=== PATIENT | male | born 1940 | race Caucasian/White ===

== ENCOUNTER 2018-06-21 06:41 | Inpatient (IN) | payer MEDICARE, OTHER ==
--- NOTE | 2018-06-11 22:38 | HP ---
HISTORY AND PHYSICAL: DATE OF ADMISSION/SURGERY: 06/21/18 PROVIDER: Dr. Angie Hall.* (DICTATED BY TEVIN DOMINIQUE) HISTORY OF PRESENT ILLNESS: Mr. Perez is a 77-year-old gentleman with years of left knee pain. He reports over the last 5 years, he has had pain, but in the last year it has become 6/10 and sharp, aching along his joint line. He has difficulty walking even a block without pain. He has failed conservative management with physical therapy, steroid injections, viscosupplementation injections, and anti- inflammatories without relief. He would like to undergo a left total knee arthroplasty with Dr. Hall. PAST MEDICAL HISTORY: 1. Osteoarthritis. 2. Diabetes. PAST SURGICAL HISTORY: 1. Left knee arthroscopy in February 2018 with . 2. Hernia repair. MEDICATIONS: 1. Tramadol. 2. Metformin 500 mg. 3. Gabapentin mg. 4. Centrum Silver. 5. Pantoprazole 40 mg. ALLERGIES: BEE STING, SHELLFISH-DERIVED PRODUCTS, IV CONTRAST. FAMILY HISTORY: None. SOCIAL HISTORY: The patient lives with his . He is retired. No tobacco, alcohol, or recreational drug use. Normally active and walking. He is right- hand dominant. REVIEW OF SYSTEMS: General: The patient denies fevers, chills, or night sweats. No known anesthesia problems. HEENT: The patient denies headaches, lightheadedness, or syncopal episodes. Cardiothoracic: The patient denies chest pain, heart palpitations, or edema. Pulmonary: The patient denies any shortness of breath with exertion, chronic cough, COPD, or asthma. GI: The patient denies any nausea, vomiting, diarrhea, or constipation. : The patient denies any nocturia, urinary frequency, urgency, or history of UTIs. MSK: The patient denies any chronic or intermittent back pain or fractures. Neuro: The patient denies any paresthesias, numbness, seizures, or stroke. Integument: The patient denies any abrasions, lesions, rashes, lumps, or open sores. PHYSICAL EXAMINATION GENERAL: The patient is alert and oriented x3, in no acute distress. Appropriate mood and affect. Appropriate dress and hygiene. HEENT: Normocephalic, atraumatic. Hearing and vision are grossly intact. PULMONARY: Lungs are clear to auscultation bilaterally with no wheezes, rales, or rhonchi. CARDIO: Regular rate and rhythm. Normal S1 and S2. No appreciable S3 or S4. No murmurs, rubs, or gallops. MUSCULOSKELETAL: Left lower extremity: Inspection of the left knee reveals no erythema or ecchymosis. Skin is warm, dry, and intact. There are no abrasions or open wounds. There is kiim-an-nqquwlid knee effusion. Range of motion is 10 to 120 degrees of flexion with pain. He has no varus or valgus instability. Negative Colleen's. Negative Reyes's. He has 5/5 ankle dorsiflexion and plantar flexion strength. Full sensation intact to light touch with a 2+ dorsalis pedis pulse. IMPRESSION: Left knee osteoarthritis. PLAN: To the OR for a left total knee arthroplasty to be performed by Dr. Angie Hall on 06/21/18. He will follow up 10 to 14 days postoperatively for suture removal and followup. The risks, benefits, and complications of surgery were reviewed with the patient today and he understands them. TEVIN DOMINIQUE [id number]/[facility] #: [id number] MICHAELA
[~2018-06-21 06:41] MED LIST: Acetaminophen TAB* 325 MG PO ONE; Buffered Lidocaine 0.9% SYRIN* 5 ML/SYR SYRINGE INTRADERM ONE; Famotidine IV* 10 MG/ML 2 ML (20 mg) IV ONE; Lactated Ringers 1000 ML Bag* 1,000 ML IV SCH; Tranexamic Acid 1,000 MG in NS 0.9% 50 ML* (outpatient use) IV SCH; celeCOXIB CAP* 200 MG PO ONE
--- OUTSIDE RECORDS SUMMARY | 2018-06-21 06:48 | XMS REPORT | Continuity of Care Document ---
:1940 External Reference #:[id number] Author Name Panchito Woodard M.D. Address [address] [place] [address] Care Team Providers Name Role Phone Panchito Woodard M.D. Care Team Information Stock Tracer Unavailable Payers Type Date Identification Numbers Payment Provider Subscriber Effective: 2007 Policy Number: [id number] Medicare - NGS Tristan Perez Group Name: Medicare [address] PayID: [id number] [facility] [place] [address] Policy Number: [id number] [employer] Tristan Perez PayID: [id number] [address] [address] [place] [address] Advance Directives Description No Information Available Problems Date Description Provider Status Onset: 04/24/2017 Knee pain Panchito Woodard M.D. Active Onset: 04/24/2017 Knee pain Panchito Woodard M.D. Active Onset: 04/24/2017 Hypothyroidism Panchito Woodard M.D. Active Onset: 04/24/2017 Type 2 diabetes mellitus Panchito Woodard M.D. Active Onset: 04/24/2017 Gastroesophageal reflux disease Panchito Woodard M.D. Active Onset: 04/24/2017 Migraine with typical aura Panchito Woodard M.D. Active Onset: 04/24/2017 Neck pain Panchito Woodard M.D. Active Onset: 04/24/2017 Major depressive disorder, single Panchito Woodard M.D. 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 Use Occasionally consumes alcohol Tobacco Use Start: Unknown End: Patient is a former smoker Unknown Recreational Drug Use Never Used Drugs Smoking Status Reviewed: 06/09/18 Patient is a former smoker Tattoo/Piercing Tattoo right Allergies, Adverse Reactions, Alerts Date Description Reaction Status Severity Comments 09/17/2015 Bee Sting Active Severe 09/17/2015 IV dye Active Medications Medication Date Status Form Strength Qnty SIG Indications Ordering Provider Gabapentin 04/27 Active Capsules 300mg 90cap 1 by mouth s three times a Castellan day Fanny grande Metformin HCL 04/27 Active Tablets 1000mg 60tab 1 by mouth E11.9 s twice a day Castellaadiel grande M.D. Polyethylene 04/27 Active Powder 3350NF 255gm 1 scoop m w K59.00 Panchito Glycol 335 and f Castellaadiel grande M.D. Tramadol HCL 03/16 Active Tablets 50mg 120ta 1 by mouth S83.201S bs with a 500 mg Castellan acetaminophen Fanny grande four times a day if needed Naproxen 08/13 Active Tablets 500mg 60tab 1 by mouth M54.41 s twice a day Abdirahman grande M.D. Relion Blood 02/18 Active Strips 100un use 3 times E11. its daily E11.9 Abdirahman Teststrips Fanny grande Centrum Silver 09/17 Active Tablets Adult 50 1 po qd Panchito Adult 50+ /2015 Abdirahman grande M.D. Omeprazole 09/17 Active Tablets 20mg 90tab [address] lua every day Abdirahman grande M.D. Carafate Active Tablets 1gm 1 by mouth Syam, /0000 four times a [place], day Fanny Gabapentin 08/13 Hx Capsules 100mg 90cap 1 by mouth M54.41 s three times a Castellan - day Fanny grande 04/27 Metformin HCL 07/09 Hx Tablets 500mg 180ta 1 by mouth E11.9 bs twice a day Castellan - Fanny grande 04/27 Diclofenac 04/21 Hx Gel 3% 100gm use twice a day for the Castellan - casey grande M.D. 04/21 Diclofenac 04/21 Hx Gel 1% 100gm use four times Panchito a day Abdirahman grande M.D. 07/09 Azithromycin 08/26 Hx Tablets 250mg 6tabs 2 now and 1 J06.9 daily x 4 days Martinellaadiel grande M.D. 04/21 Depakote 07/15 Hx Tablets 500mg 30tab one daily R45.4 DR chanell grande M.D. 07/15 Valproic Acid 07/15 Hx Capsules 250mg 60cap 1 twice a day s ( stop the Castellan - depakote due Fanny grande 04/21 to cost ) Cialis 04/04 Hx Tablets 20mg 3tabs 1 as needed Abdirahman grande M.D. 07/15 Levothyroxine 04/02 Hx Tablets 25mcg 90tab 1 daily in am E03.9 s 1/2 hr before Castellan - meal or meds Fanny grande 08/13 Shingles 04/02 Hx ok to give at Z00.01 pharmacy Abdirahman grande M.D. 07/15 Citalopram 02/18 Hx Tablets 10mg 30tab 1 by mouth F32.9 Hydrobromide s every day Abdirahman grande M.D. 07/15 Melatonin 09/17 Hx Tablets 5mg 2 po @ hs Panchito Martinellaadiel Strength Mis grande M.D. 04/21 Advil Migraine 09/17 Hx Capsules 200mg 1 po qd Abdirahman grande M.D. 08/13 Topiramate 09/17 Hx Tablets 25mg 90tab one tablet at s bedtime Abdirahman grande M.D. 12/09 Hydrocodone-Chris 00 Hx Tablets 5-325mg Saad, taminophen /0000 Mis Brenner MD 08/13 Immunizations CPT Code Status Date Vaccine Lot # [id number] Given 04/21/2018 Flu High Dose Vaccine [id number] Given 04/21/2017 Prevnar 13 33530 Given 04/20/2017 Flu High Dose Vaccine [id number] Given 04/02/2016 Tdap Vaccine over 7 yrs old Tdap [id number] 22867 Given 04/02/2016 Prevnar 13 Prevnar 13 [id number] 09664 Given 09/19/2014 Influenza Vac,Quad,Split=>3 Yrs 06790 Given 06/08/2000 Influenza Vac,Quad,Split=>3 Yrs Vital Signs Date Vital Result Comment 06/09/2018 2:12pm Weight 156.00 lb BP Systolic 114 mmHg BP Diastolic 70 mmHg Height 66.5 inches 5'6.50" Heart Rate 68 /min O2 % BldC Oximetry 96 % Respiratory Rate 18 /min BMI (Body Mass Index) 24.8 kg/m2 04/27/2018 2:27pm Weight 157.00 lb BP Systolic 130 mmHg BP Diastolic 84 mmHg Height 66.75 inches 5'6.75" Heart Rate 64 /min Respiratory Rate 16 /min BMI (Body Mass Index) 24.8 kg/m2 03/16/2018 3:02pm Weight 159.00 lb BP Systolic 122 mmHg BP Diastolic 74 mmHg 12/09/2017 1:15pm Weight 164.00 lb BP Systolic 120 mmHg BP Diastolic 64 mmHg Heart Rate 56 /min Respiratory Rate 16 /min 08/13/2017 8:16am Weight 164.00 lb BP Systolic 130 mmHg BP Diastolic 70 mmHg 07/09/2017 12:59pm Weight 162.50 lb BP Systolic 102 mmHg BP Diastolic 72 mmHg Height 66.50 inches 5'6.50" Heart Rate 72 /min Body Temperature 98.3 F Respiratory Rate 16 /min BMI (Body Mass Index) 25.8 kg/m2 06/15/2017 2:34pm Weight 165.00 lb BP Systolic 128 mmHg BP Diastolic 80 mmHg 04/21/2017 1:48pm Weight 165.50 lb BP Systolic 112 mmHg BP Diastolic 70 mmHg Height 66.50 inches 5'6.50" Heart Rate 56 /min Respiratory Rate 16 /min BMI (Body Mass Index) 26.3 kg/m2 04/06/2017 10:03am Weight 170.50 lb BP Systolic 124 mmHg BP Diastolic 82 mmHg 08/14/2016 1:16pm Weight 169.00 lb BP Systolic 138 mmHg BP Diastolic 82 mmHg 07/15/2016 1:49pm Weight 164.00 lb BP Systolic 138 mmHg BP Diastolic 84 mmHg 04/02/2016 1:04pm Weight 164.50 lb BP Systolic 110 mmHg BP Diastolic 78 mmHg Height 66.75 inches 5'6.75" Heart Rate 60 /min Body Temperature 97.7 F Respiratory Rate 16 /min BMI (Body Mass Index) 26.0 kg/m2 02/19/2016 2:28pm Weight 165.00 lb BP Systolic 120 mmHg BP Diastolic 72 mmHg 01/01/2016 1:11pm Weight 163.00 lb BP Systolic 142 mmHg BP Diastolic 62 mmHg 10/03/2015 1:58pm Weight 170.00 lb BP Systolic 130 mmHg BP Diastolic 78 mmHg 09/17/2015 1:06pm Weight 168.00 lb BP Systolic 130 mmHg BP Diastolic 80 mmHg Height 67 inches 5'7" BMI (Body Mass Index) 26.3 kg/m2 Results Test Date Facility Test Result H/L Range Note LDL Cholesterol 04/21/2018 [facility] Cholesterol 201 mg/dL High < 200 1, 2 Profile [phone] Triglycerides 140 mg/dL <150 3 HDL Cholesterol 48 mg/dL >40 4 LDL-Cholesterol 125 mg/dL < 100 5 Laboratory test finding 04/21/2018 [facility] Amylase 94 U/L 25- 115 [phone] Lipase 191 U/L 56-289 Comprehensive Metabolic 04/21/2018 [facility] Glucose 123 mg/dL High 74-106 Panel [phone] BUN 12 mg/dL 7-18 Creatinine 0.8 mg/dL 0.6-1.3 Glom Filtration Rate, Estimate >60 mL/min >60 If >60 mL/min >60 6 BUN/Creat 15.0 ratio Sodium 143 mmol/L 136-145 Potassium 3.9 mmol/L 3.5-5.1 Chloride 106 mmol/L 98-107 Carbon Dioxide 31 mmol/L 21-32 Anion Gap 6 mEq/L Low 8-16 Calcium 8.9 mg/dL 8.5-10.1 Laboratory test 04/21/2018 [facility] Microalbumin,Random 29.2 < 20.0 finding [phone] Urine mg/L Glycohemoglobin 04/21/2018 [facility] Glycohemoglobin (A1c) 7.1 % High 4.2-6. 7 A1c [phone] 3 eAG 157 mg/dL Liver Function Tests 04/21/2018 [facility] Total Protein 7.3 g/dL 6.4-8.2 [phone] Albumin 3.5 g/dL 3.4-5.0 Globulin 3.8 g/dL 1.9-4.3 Alb/Glob 0.9 ratio Bilirubin,Total 0.6 mg/dL 0.2-1.0 Bilirubin,Direct 0.1 mg/dL 0.0-0.2 Bilirubin,Indirect 0.5 mg/dL 0.0-0.9 Sgot/Ast 20 U/L 15-37 SGPT/Alt 32 U/L 12-78 Alkaline Phosphatase 82 U/L 45-117 CBC 04/21/2018 [facility] White Blood Count 7.8 K/uL 3.4-10.5 [phone] Red Blood Count 5.12 M/uL 4.20-5.80 Hemoglobin 14.2 gm/dL 12.8-17.0 Hematocrit 43.4 % 38.0-48.0 Mean Cell Volume 84.8 fl 80.0-96.0 Mean Corpuscular HGB 27.7 pg 27.0-33.0 Mean Corpuscular HGB Conc 32.7 g/dL 31.7-36.0 Platelet Count 263 K/uL 155-360 Red Cell Distri Width %CV 13.7 % 11.6-15.8 Mean Platelet Volume 10.1 fL 6.6-10.6 Laboratory test 01/11/2018 [facility] TSH Reflex FT4 <pending> 8 finding [phone] And/Or FT3 Glycohemoglobin A1c <pending> Microalbumin,Random 01/11/2018 [facility] Microalbumin,Urine 15.5 < 20.0 Urine [phone] mg/L Comprehensive 01/11/2018 [facility] Glucose 111 High 74-106 Metabolic Panel [phone] mg/dL BUN 19 mg/dL High 7-18 Creatinine 0.8 mg/dL 0.6-1.3 Glom Filtration Rate, Estimate >60 mL/min >60 If >60 mL/min >60 9 BUN/Creat 23.7 ratio Sodium 141 mmol/L 136-145 Potassium 4.1 mmol/L 3.5-5.1 Chloride 103 mmol/L 98-107 Carbon Dioxide 29 mmol/L 21-32 Anion Gap 9 mEq/L 8-16 Calcium 9.2 mg/dL 8.5-10.1 Total Protein 7.5 g/dL 6.4-8.2 Albumin 3.8 g/dL 3.4-5.0 Globulin 3.7 g/dL 1.9-4.3 Alb/Glob 1.0 ratio Bilirubin,Total 0.4 mg/dL 0.2-1.0 Sgot/Ast 17 U/L 15-37 SGPT/Alt 25 U/L 12-78 Alkaline Phosphatase 98 U/L 45-117 Glycohemoglobin 01/11/2018 [facility] Glycohemoglobin 6.8 % High 4.2-6.3 10 A1c [phone] (A1c) eAG 148 mg/dL Laboratory 01/11/2018 [facility] Glycohemoglobin A1c <pending> test finding [phone] Hemoglobin A1c 07/31/2017 [facility] Glycohemoglobin 6.9 % High 4.2 11, [phone] (A1c) -6. 12 3 eAG 151 mg/dL Comprehensive Metabolic 07/31/2017 [facility] Glucose 140 mg/dL High 74-106 Panel [phone] BUN 17 mg/dL 7-18 Creatinine 0.9 mg/dL 0.6-1.3 Glom Filtration Rate, Estimate >60 mL/min >60 If >60 mL/min >60 13 BUN/Creat 18.8 ratio Sodium 141 mmol/L 136-145 Potassium 3.8 mmol/L 3.5-5.1 Chloride 109 mmol/L High 98-107 Carbon Dioxide 27 mmol/L 21-32 Anion Gap 5 mEq/L Low 8-16 Calcium 9.2 mg/dL 8.5-10.1 Total Protein 7.5 g/dL 6.4-8.2 Albumin 3.7 g/dL 3.4-5.0 Globulin 3.8 g/dL 1.9-4.3 Alb/Glob 1.0 ratio Bilirubin,Total 0.5 mg/dL 0.2-1.0 Sgot/Ast 13 U/L Low 15-37 14 SGPT/Alt 26 U/L 12-78 Alkaline Phosphatase 99 U/L 45-117 Prostate Specific 06/13/2017 [facility] PSA ([place] 4.12 ng/mL < 4.0 15, 16 Antigen [phone] Loci) Reflex add FT3? Y Reflex add FT4? Y TSH Reflex FT4 06/13/2017 [facility] Thyroid Stim 4.16 uIU/mL 0.30 -4.20 And/Or FT3 [phone] Hormone Reflex add FT3? Y Reflex add FT4? Y Comprehensive Metabolic 06/13/2017 [facility] Glucose 130 mg/dL High 74-106 Panel [phone] BUN 18 mg/dL 7-18 Creatinine 0.8 mg/dL 0.6-1.3 Glom Filtration Rate, Estimate >60 mL/min >60 If >60 mL/min >60 17 BUN/Creat 22.5 ratio Sodium 141 mmol/L 136-145 Potassium 3.9 mmol/L 3.5-5.1 Chloride 109 mmol/L High 98-107 Carbon Dioxide 24 mmol/L 21-32 Anion Gap 8 mEq/L 8-16 Calcium 9.0 mg/dL 8.5-10.1 Total Protein 7.3 g/dL 6.4-8.2 Albumin 3.6 g/dL 3.4-5.0 Globulin 3.7 g/dL 1.9-4.3 Alb/Glob 1.0 ratio Bilirubin,Total 0.4 mg/dL 0.2-1.0 Sgot/Ast 16 U/L 15-37 SGPT/Alt 28 U/L 12-78 Alkaline Phosphatase 105 U/L 45-117 Reflex add FT3? Y Reflex add FT4? Y Lyme AB/Western 06/13/2017 [facility] Lyme Total < 0.91 ISR 0.00- 0.90 18 Blot Reflex [phone] AB/Reflex To WB Lyme Disease Antibody,QT,Igm < 0.80 index 0.00-0.79 19 Laboratory test 06/13/2017 [facility] Anti-Nuclear Negative Negative 20 finding [phone] Antibodies AU/mL Direct Glycohemoglobin 06/13/2017 [facility] Glycohemoglobin 6.8 % High 4.2-6.3 21 A1c [phone] (A1c) eAG 148 mg/dL LDL Cholesterol 06/13/2017 [facility] Cholesterol 201 mg/dL High < 200 22 Profile [phone] Triglycerides 321 mg/dL High <150 23 HDL Cholesterol 41 mg/dL >40 24 LDL-Cholesterol 96 mg/dL < 100 25 Reflex add FT3? Y Reflex add FT4? Y Microalbumin,Random 06/13/2017 [facility] Microalbumin,Urine 17.1 < 20.0 Urine [phone] mg/L Laboratory test 06/13/2017 [facility] Uric Acid 3.7 3.5-7. finding [phone] mg/dL 2 Rheumatoid Factor Screen < 10.0 IU/mL 0.0-15.0 C-Reactive Protein,Quant < 2.9 mg/L <3.0 Lupus Anticoagulant Reflex 06/13/2017 [facility] PTT-LA 35.8 sec 0.0-51.9 [phone] DRVVT 37.1 sec 0.0-47.0 Note: Comment: . 26 Laboratory test 06/13/2017 [facility] Sedimentation Rate 9 mm/hr 0 -20 27 finding [phone] CBC 06/13/2017 [facility] White Blood Count 7.3 K/uL 3.4-10.5 [phone] Red Blood Count 4.99 M/uL 4.20-5.80 Hemoglobin 14.1 gm/dL 12.8-17.0 Hematocrit 41.7 % 38.0-48.0 Mean Cell Volume 83.6 fl 80.0-96.0 Mean Corpuscular HGB 28.3 pg 27.0-33.0 Mean Corpuscular HGB Conc 33.8 g/dL 31.7-36.0 Platelet Count 274 K/uL 150-400 Red Cell Distri Width %CV 13.3 % 11.6-15.8 Mean Platelet Volume 9.7 fL 6.6-10.6 Microalbumin,Random 03/28/2016 [facility] Microalbumin,Urine 6.9 < 20.0 28 Urine [phone] mg/L @[facility] Pat Id: [id number] @[facility] Req #: [id number] Vitamin 03/27/2016 [facility] Vitamin 38.6 30.0-100.0 29, 30 D,25-Hydroxy [phone] D,25-Hydroxy ng/mL @[facility] Pat Id: [id number] @[facility] Req #: [id number] Thyroid Stim 03/27/2016 [facility] Thyroid Stim 4.52 uIU/mL High 0.30-4.20 Hormone [phone] Hormone @[facility] Pat Id: [phone] @[facility] Req #: [id number] Hemoglobin A1c 03/27/2016 [facility] Glycohemoglobin 6.4 % High 4.2 -6.3 31 [phone] (A1c) eAG 137 mg/dL @[facility] Pat Id: [id number] @[facility] Req #: [id number] LDL Cholesterol Profile 09/19/2015 [facility] Cholesterol 193 mg/dL <200 32 [phone] Triglycerides 276 mg/dL High <150 33 HDL Cholesterol 34 mg/dL Low >40 34 LDL-Cholesterol 104 mg/dL < 100 35 Liver Function Tests 09/19/2015 [facility] Total Protein 7.0 g/dL 6.4-8.2 [phone] Albumin 3.5 g/dL 3.4-5.0 Globulin 3.5 g/dL 1.9-4.3 Alb/Glob 1.0 ratio Bilirubin,Total 0.5 mg/dL 0.2-1.0 Bilirubin,Direct < 0.1 mg/dL 0.0-0.2 Bilirubin,Indirect 0.4 mg/dL 0.0-0.9 Sgot/Ast 16 U/L 15-37 SGPT/Alt 30 U/L 12-78 Alkaline Phosphatase 117 U/L 45-117 Glycohemoglobin 09/19/2015 [facility] Glycohemoglobin 6.7 % High 4.2-6.3 36 A1c [phone] (A1c) eAG 146 mg/dL Basic Metabolic Panel 09/19/2015 [facility] Glucose 120 mg/dL High 74-106 [phone] BUN 18 mg/dL 7-18 Creatinine 0.9 mg/dL 0.6-1.3 Glom Filtration Rate, Estimate >60 mL/min >60 If >60 mL/min >60 37 BUN/Creat 20.0 ratio Sodium 139 mmol/L 136-145 Potassium 3.8 mmol/L 3.5-5.1 Chloride 108 mmol/L High 98-107 Carbon Dioxide 25 mmol/L 21-32 Anion Gap 6 mEq/L Low 8-16 Calcium 8.4 mg/dL Low 8.5-10.1 CBS W/Automated Diff 09/19/2015 [facility] White Blood 6.8 K/uL 3.4-10.5 [phone] Count Red Blood Count 5.08 M/uL 4.20-5.80 Hemoglobin 14.0 gm/dL 12.8-17.0 Hematocrit 42.0 % 38.0-48.0 Mean Cell Volume 82.7 fl 80.0-96.0 Mean Corpuscular HGB 27.6 pg 27.0-33.0 Mean Corpuscular HGB Conc 33.3 g/dL 31.7-36.0 Platelet Count 262 K/uL 150-400 Red Cell Distri Width SD 39.2 fl 36-51 Red Cell Distri Width %CV 13.3 % 11.6-15.8 Mean Platelet Volume 10.2 fL 6.6-10.6 Neut% 51.2 % 33.0-73.0 Lymph % 34.4 % 17.0-56.0 [place] % 10.4 % High 0.0-10.0 Eo% 3.3 % 0.0-5.0 Bas% 0.7 % 0.1-1.0 Neut# 3.46 K/uL 1.8-7.0 Lymph # 2.32 K/uL 1.8-7.0 [place] # 0.70 K/uL 0.0-0.8 Eos # 0.22 K/uL 0.0-0.5 Baso # 0.05 K/uL Low 0.1-0.2 1 E11.40, EPIGAS. PAIN 2 Reference Guidelines*: Desirable: ........... < 200 mg/dL Borderline High: ..... 200-239 mg/dL High: ................ >=240 mg/dL * The National Cholesterol Education Program (NCEP) 3 Reference Guidelines*: Normal: ............. < 150 mg/dL Borderline High: .... 150-199 mg/dL High: ............... 200-499 mg/dL Very High: .......... > 500 mg/dL * Source: National Cholesterol Education Program (NCEP) 4 Reference Guidelines*: Low HDL: ..... < 40 mg/dL Normal: ..... 40-60 mg/dL Desirable: ... > 60 mg/dL *The National Cholesterol Education Program(NCEP) 5 Reference Guidelines*: Optimal:........... <100 mg/dL Near Optimal....... 100-129 mg/dL Borderline High.... 130-159 mg/dL High............... 160-189 mg/dL Very High.......... >=190 mg/dL * Source: National Cholesterol Education Program (NCEP) 6 Note: Persistent reduction for 3 months or more in an eGFR <60 mL/min/1.73 m2 defines CKD. Patients with eGFR values >/=60 mL/min/1.73 m2 may also have CKD if evidence of persistent proteinuria is present. The original MDRD equation for estimated GFR is not valid for patients less than 18 years of age. Additional information may be found at www.kdoqi.org. 7 Elevated levels of HbA1c suggest the need for more aggressive treatment of glycemia. The [place] [employer] recommends that a primary goal of therapy should be a HbA1c of <7% and that physicians should re-evaluate the treatment regimen in patients with HbA1c values consistently >8%. 8 E11.40 9 Note: Persistent reduction for 3 months or more in an eGFR <60 mL/min/1.73 m2 defines CKD. Patients with eGFR values >/=60 mL/min/1.73 m2 may also have CKD if evidence of persistent proteinuria is present. The original MDRD equation for estimated GFR is not valid for patients less than 18 years of age. Additional information may be found at www.kdoqi.org. 10 Elevated levels of HbA1c suggest the need for more aggressive treatment of glycemia. The [place] [employer] recommends that a primary goal of therapy should be a HbA1c of <7% and that physicians should re-evaluate the treatment regimen in patients with HbA1c values consistently >8%. 11 ABD PAIN R10.9 E11.9 K42.9 12 Elevated levels of HbA1c suggest the need for more aggressive treatment of glycemia. The [place] [employer] recommends that a primary goal of therapy should be a HbA1c of <7% and that physicians should re-evaluate the treatment regimen in patients with HbA1c values consistently >8%. 13 Note: Persistent reduction for 3 months or more in an eGFR <60 mL/min/1.73 m2 defines CKD. Patients with eGFR values >/=60 mL/min/1.73 m2 may also have CKD if evidence of persistent proteinuria is present. The original MDRD equation for estimated GFR is not valid for patients less than 18 years of age. Additional information may be found at www.kdoqi.org. 14 Values below the stated reference ranges of AST and ALT can be seen in normal populations. Clinical correlation is suggested. 15 Z12.5 E03.9 E11.9 M17.0 16 THIS ASSAY IS NOT INTENDED A CANCER SCREENING TEST The concentration of PSA in a given specimen, determined with assays from different manufacturers, can vary due to differences in assay methods and reagent specificity. Values obtained from different assay methods cannot be used interchangeably. Method: [employer] [place] Chemiluminescent immunoassay. 17 Note: Persistent reduction for 3 months or more in an eGFR <60 mL/min/1.73 m2 defines CKD. Patients with eGFR values >/=60 mL/min/1.73 m2 may also have CKD if evidence of persistent proteinuria is present. The original MDRD equation for estimated GFR is not valid for patients less than 18 years of age. Additional information may be found at www.kdoqi.org. 18 Negative <0.91 Equivocal 0.91 - 1.09 Positive >1.09 19 Negative <0.80 Equivocal 0.80 - 1.19 Positive >1.19 IgM levels may peak at 3-6 weeks post infection, then gradually decline. 20 Performed at: - [facility] [id number] Vending Attendant: Renaldo Chin MD, Phone: [phone] Performed at: - [facility] [address] [id number] Vending Attendant: Giselle Perez MD, Phone: [phone] 21 Elevated levels of HbA1c suggest the need for more aggressive treatment of glycemia. The [place] [employer] recommends that a primary goal of therapy should be a HbA1c of <7% and that physicians should re-evaluate the treatment regimen in patients with HbA1c values consistently >8%. 22 Reference Guidelines*: Desirable: ........... < 200 mg/dL Borderline High: ..... 200-239 mg/dL High: ................ >=240 mg/dL * The National Cholesterol Education Program (NCEP) 23 Reference Guidelines*: Normal: ............. < 150 mg/dL Borderline High: .... 150-199 mg/dL High: ............... 200-499 mg/dL Very High: .......... > 500 mg/dL * Source: National Cholesterol Education Program (NCEP) 24 Reference Guidelines*: Low HDL: ..... < 40 mg/dL Normal: ..... 40-60 mg/dL Desirable: ... > 60 mg/dL *The National Cholesterol Education Program(NCEP) 25 Reference Guidelines*: Optimal:........... <100 mg/dL Near Optimal....... 100-129 mg/dL Borderline High.... 130-159 mg/dL High............... 160-189 mg/dL Very High.......... >=190 mg/dL * Source: National Cholesterol Education Program (NCEP) 26 No lupus anticoagulant was detected. 27 Method: Sediplast Modified Westergren 28 E11.9 29 E11.9,F32.9 30 Vitamin D deficiency has been defined by the [place] of [employer] and an Endocrine Society practice guideline as a level of serum 25-OH vitamin D less than 20 ng/mL (1,2). The Endocrine Society went on to further define vitamin D insufficiency as a level between 21 and 29 ng/mL (2). 1. IOM ([place] of [employer]). 2010. Dietary reference intakes for calcium and D. [place]: The National Academies Press. 2. Dara MF, Kash PRIDE, Terrence SOW, et al. Evaluation, treatment, and prevention of vitamin D deficiency: an Endocrine Society clinical practice guideline. JCEM. 2010; 96(7):1911-30. Performed at: RN - [facility] [address] [id number] Vending Attendant: Giselle Perez MD, Phone: [phone] 31 Elevated levels of HbA1c suggest the need for more aggressive treatment of glycemia. The [place] Diabetes Association recommends that a primary goal of therapy should be a HbA1c of <7% and that physicians should re-evaluate the treatment regimen in patients with HbA1c values consistently >8%. 32 Reference Guidelines*: Desirable: ........... < 200 mg/dL Borderline High: ..... 200-239 mg/dL High: ................ >=240 mg/dL * The National Cholesterol Education Program (NCEP) 33 Reference Guidelines*: Normal: ............. < 150 mg/dL Borderline High: .... 150-199 mg/dL High: ............... 200-499 mg/dL Very High: .......... > 500 mg/dL * Source: National Cholesterol Education Program (NCEP) 34 Reference Guidelines*: Low HDL: ..... < 40 mg/dL Normal: ..... 40-60 mg/dL Desirable: ... > 60 mg/dL *The National Cholesterol Education Program(NCEP) 35 Reference Guidelines*: Optimal:........... <100 mg/dL Near Optimal....... 100-129 mg/dL Borderline High.... 130-159 mg/dL High............... 160-189 mg/dL Very High.......... >=190 mg/dL * Source: National Cholesterol Education Program (NCEP) 36 Elevated levels of HbA1c suggest the need for more aggressive treatment of glycemia. The [place] [employer] Association recommends that a primary goal of therapy should be a HbA1c of <7% and that physicians should re-evaluate the treatment regimen in patients with HbA1c values consistently >8%. 37 Note: Persistent reduction for 3 months or more in an eGFR <60 mL/min/1.73 m2 defines CKD. Patients with eGFR values >/=60 mL/min/1.73 m2 may also have CKD if evidence of persistent proteinuria is present. The original MDRD equation for estimated GFR is not valid for patients less than 18 years of age. Additional information may be found at [email or web address]. Procedures Date Code Description Status 06/09/2018 11056 EKG Completed 07/09/2017 15325 EKG Completed 01/11/2015 [id number] Colonoscopy Completed Encounters Type Date Location Provider Dx Diagnosis Office Visit 04/27/2018 Main Office Panchito Woodard, Z00.01 Encounter for 2:00p M.DGiulia general adult medical exam w abnormal findings Z12.12 Encounter for screening for malignant neoplasm of rectum Z12.5 Encounter for screening for malignant neoplasm of prostate S83.201S Bucket-hndl tear of unsp mensc, crnt injury, l knee, sequela K59.00 Constipation, unspecified E11.9 Type 2 diabetes mellitus without complications Office Visit 03/16/2018 Main Office Panchito S83.201S Bucket-hndl tear 4:00p Fanny Woodard of unsp mensc, crnt injury, l knee, sequela E11.40 Type 2 diabetes mellitus with diabetic neuropathy, unsp Office Visit 12/09/2017 1:30p Main Office Panchito Woodard, E11.40 Type 2 diabetes M.D. 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 sciatica, right side I71.4 Abdominal aortic aneurysm, without rupture E03.9 Hypothyroidism, unspecified E11.9 Type 2 diabetes mellitus without complications Office Visit 07/09/2017 1:00p Main Office Panchito Woodard K42.9 Umbilical hernia M.D. 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 without obstruction or gangrene Office Visit 04/21/2017 2:00p Main Office Panchito Woodard, Z00.01 Encounter for M.D. general adult medical exam w abnormal findings M25.561 Pain in right knee M25.562 Pain in left knee Z12.12 Encounter for screening for malignant neoplasm of rectum Z12.5 Encounter for screening for malignant neoplasm of prostate K42.9 Umbilical hernia without obstruction or gangrene E03.9 Hypothyroidism, unspecified E11.9 Type 2 diabetes mellitus without complications K21.9 Gastro-esophageal reflux disease without esophagitis R45.4 Irritability and anger G43.109 Migraine with aura, not intractable, w/o status migrainosus Office Visit 04/06/2017 10:30a Main Office Panchito Woodard M25.561 Pain in right M.D. knee M25.562 Pain in left knee Office Visit 08/14/2016 1:30p Main Office Panchito Woodard M.D. M54.2 Cervicalgia L29.8 Other pruritus Office Visit 07/15/2016 1:30p Main Office Panchito Woodard M.D. M54.2 Cervicalgia R45.4 Irritability and anger Office Visit 04/02/2016 1:00p Main Office Panchito Woodard Z00.01 Encounter for M.D. general adult medical exam w abnormal findings Z12.12 Encounter for screening for malignant neoplasm of rectum Z12.5 Encounter for screening for malignant neoplasm of prostate E11.9 Type 2 diabetes mellitus without complications F32.9 Major depressive disorder, single episode, unspecified E03.9 Hypothyroidism, unspecified K21.9 Gastro-esophageal reflux disease without esophagitis G43.009 Migraine w/o aura, not intractable, w/o status migrainosus K42.9 Umbilical hernia without obstruction or gangrene L50.0 Allergic urticaria Z23 Encounter for immunization Office Visit 02/19/2016 2:30p Main Office Panchito E11Herb Type 2 diabetes Fanny Woodard mellitus without complications M54.2 Cervicalgia F32.9 Major depressive disorder, single episode, unspecified Office Visit 01/01/2016 1:00p Main Office Juanita Covarrubias PA G43.909 Migraine , unsp, not intractable, without status migrainosus E11.9 Type 2 diabetes mellitus without complications E78.5 Hyperlipidemia, unspecified M25.519 Pain in unspecified shoulder Office Visit 10/03/2015 2:00p Main Office Juanita Covarrubias PA E11.9 Type 2 diabetes mellitus without complications G43.909 Migraine, unsp, not intractable, without status migrainosus K21.9 Gastro-esophageal reflux disease without esophagitis E78.5 Hyperlipidemia, unspecified 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 at Main Uqahkp8207/27/2018 2:30 pm - Panchito Woodard M.D. at Main Rsnatt7306/09/2018 - Panchito Woodard M.D.M25.562 Pain in left kneeM25.462 Effusion, left kneeM17.12 Unilateral primary osteoarthritis, left kneeZ01.818 Encounter for other preprocedural examination
--- OUTSIDE RECORDS SUMMARY | 2018-06-21 06:48 | XMS REPORT ---
:1940 External Reference #:[id number] Author Organization [facility] Address [address] [place] [address] Phone [phone] Care Team Providers Name Role Phone Panchito Woodard MD Primary Care Physician Unavailable Payers Type Date Identification Numbers Payment Provider Subscriber Medicare Primary Policy Number: [id number] Medicare Tristan Perez PayID: [id number] [address] [place] [address] Commercial Policy Number: [id number] [employer] wedgies (O) Tristan Perez PayID: [id number] [address] [address] [place] [address] Problems Date Description Provider Status Onset: 05/10/2018 Localized, primary osteoarthritis Angie Hall M.D. Active Family History Date Family Member(s) Problem(s) Comments General No Current Problems Social History Type Date Description Comments Lives With Spouse Occupation Retired ETOH Use Denies alcohol use Smoking Patient is a former smoker Exercise Type/Frequency Exercises regularly Allergies, Adverse Reactions, Alerts Date Description Reaction Status Severity Comments 05/11/2018 Bee Sting active 05/11/2018 Shellfish-derived Products CT DYE ALLERGY active CT Dye Allergy Medications Medication Date Status Form Strength Qnty SIG Indications Ordering Provider Gabapentin Active Capsules 300mg 1 by Unknown 000 mouth three times a day Sucralfate Active Tablets 1gm Syam, 000 MD Kylah Pantoprazole Active Tablets DR 40mg Syam, Sodium 000 MD Kylah Metformin HCL Active Tablets 1000mg Woodard Panchito Bonilla MD Naproxen Active Tablets 500mg Woodard 000 Panchito MD Tramadol HCL Active Tablets 50mg Woodard Panchito Bonilla MD Polyethylene Active Powder 3350NF Woodard Glycol 3350 Panchito Bonilla MD Uunknown Pain Hx Unknown Pill 000 - 018 Sugar Pills Hx Unknown 000 - 018 Vital Signs Date Vital Result Comment 06/09/2018 Height 66.5 inches 5'6.50" Weight 157.00 lb BP Systolic 128 mmHg BP Diastolic 66 mmHg Respiratory Rate 18 /min Body Temperature 97.0 F Pain Level 5 BMI (Body Mass Index) 25.0 kg/m2 05/10/2018 Height 66.5 inches 5'6.50" Weight 157.00 lb Heart Rate 72 /min BP Systolic 136 mmHg BP Diastolic 72 mmHg BMI (Body Mass Index) 25.0 kg/m2 Results Description No Information Procedures Description No Information Encounters Type Date Location Provider CPT E/M Dx Office Visit 05/10/2018 [facility] Angie Hall M.D. 18498 M25.562 2:30p [facility] M25.462 M17.12 Plan of Care Future Appointment(s):07/05/2018 2:15 pm - Angie Hall M.D. at [facility]06/21/2018 9:30 am - Angie Hall M.D. at [facility]
[2018-06-21] MEDS ORDERED: celeCOXIB CAP* 100 MG ONE (07:08)
[2018-06-21] MEDS ORDERED: Famotidine IV* 10 MG/ML 2 ML (20 mg) ONE (07:08)
[2018-06-21] MEDS ORDERED: ceFAZolin 2 GM PREMIX in ORs 2 GM/50 ML BAG IVPB ONE (07:09)
[2018-06-21] MEDS ORDERED: Acetaminophen TAB* 325 MG ONE (07:09)
[2018-06-21] MEDS ORDERED: Midazolam* 1 MG/ML 10 ML VIAL (10 MG) ONE (07:34)
[2018-06-21] MEDS ORDERED: Propofol* 10 MG/ML 20 ML BTL IV PUSH ONE (07:34)
[2018-06-21] MEDS ORDERED: ROPIVACAINE 5 MG/ML 30 ML BTL (0.5%) ONE (07:34)
[2018-06-21] MEDS ORDERED: Lidocaine 2% PF * 5 ML VIAL ONE (07:34)
[2018-06-21] MEDS ORDERED: Ondansetron INJ* 2 MG/ML VIAL ONE (07:34)
[2018-06-21] MEDS ORDERED: fentaNYL* 50 MCG/ML 2 ML VIAL (100 MCG VIAL) ONE ×3 (07:34→12:24)
[2018-06-21] MEDS ORDERED: KETAMINE HCL* 50 MG/ML 10 ML VIAL ONE (07:34)
[2018-06-21] MEDS ORDERED: Dexamethasone IV* 4 MG/ML 1 ML (4 MG) ONE (07:34)
[2018-06-21] MEDS ORDERED: Bupivacaine 0.5% SDV PF* 30ML VIAL ONE (07:39)
[2018-06-21] MEDS ORDERED: EPHEDrine (Pressors)* 50 MG/ML VIAL ONE (09:38)
[2018-06-21] MEDS ORDERED: HYDROmorphone INJ1* 1 MG/ML SYRINGE ONE (09:44)
[2018-06-21] MEDS ORDERED: Naloxone* 0.4 MG/ML 1 ML VIAL IV PRN (11:23)
[2018-06-21] MEDS ORDERED: Ondansetron INJ* 2 MG/ML VIAL IV PRN ×2 (11:23→12:02)
[2018-06-21] MEDS ORDERED: Magnesium Hydroxide LIQ* 30 ML UDC PO PRN (12:02)
[2018-06-21] MEDS ORDERED: Bisacodyl SUPP* 10 MG SUPP PR PRN (12:02)
[2018-06-21] MEDS ORDERED: diPHENhydraMINE PO* 25 MG PO PRN (12:02)
[2018-06-21] MEDS ORDERED: oxyCODONE/Acetamin 5/325 MG* TAB PO PRN (12:02)
[2018-06-21] MEDS ORDERED: Cyclobenzaprine TAB* 10 MG PO PRN (12:02)
[2018-06-21] MEDS ORDERED: Polyethylene Glycol 3350* 17 GM PACKET PO PRN (12:02)
[2018-06-21] MEDS ORDERED: diPHENhydraMINE IV* 50 MG/ML 1 ml VIAL (BENADRYL) IV PRN (12:02)
[2018-06-21] MEDS: fentaNYL* 50 MCG/ML 2 ML VIAL (100 MCG VIAL) IV PRN ×2 (12:25→13:18)
[2018-06-21] MEDS ORDERED: Dextrose 50% Syringe 50 ML* 25 GM/50 ML SYRINGE IV PUSH PRN (12:52)
[2018-06-21] MEDS ORDERED: Enoxaparin(*) 30 MG/0.3 ML SYR SUBCUT SCH (13:00)
[2018-06-21] MEDS ORDERED: hydrALAZINE IV* 20 MG/ML VIAL IV SLOW PU PRN (13:51)
[2018-06-21] MEDS ORDERED: hydrALAZINE IV* 20 MG/ML VIAL ONE (13:53)
[2018-06-21] MEDS: Lactated Ringers 1000 ML Bag* 1,000 ML IV SCH (16:00)
[2018-06-21] MEDS: Gabapentin CAP(*) 300 MG PO SCH ×2 (16:12→21:19)
[2018-06-21] MEDS: Acetaminophen TAB* 325 MG PO SCH ×2 (16:13→17:10)
--- NOTE | 2018-06-21 16:17 | PN ---
Progress Note - Progress Note Date of Service: 06/21/18 Note: Patient seen at bedside s/p LTK this am. Awake and alert, minimal left knee pain +DF/PF left ankle 2+ DP pulse sensation intact distally
[2018-06-21] MEDS ORDERED: Warfarin TAB(*) 6 MG PO ONE (17:00)
[2018-06-21] MEDS: ceFAZolin 1 GM in Dextrose (*) 1 GM/50 ML BAG IVPB SCH (17:11)
[2018-06-21] MEDS: Insulin LISPRO* 1 UNITS UNIT SUBCUT SCH (17:11)
[2018-06-21] MEDS: traMADol TAB* 50 MG PO PRN (17:12)
[2018-06-21] MEDS: Sucralfate TAB* 1 GM PO SCH (17:12)
[2018-06-21] MEDS: Phenazopyridine TAB* 100 MG PO SCH (18:14)
[2018-06-21] MEDS: amLODIPine TAB* 5 MG PO SCH (18:14)
--- NOTE | 2018-06-21 19:26 | CONS ---
CC: Dr. Woodard; Dr. Hall * CONSULTATION REPORT: DATE OF CONSULTATION: 06/21/18 PRIMARY CARE PROVIDER: Dr. Woodard. ATTENDING PHYSICIAN WHILE IN THE HOSPITAL: Hanna Mcguire MD (report dictated by Thiago Gamboa NP). REQUESTING PHYSICIAN IN CONSULT: Dr. Hall. REASON FOR CONSULTATION: Medical management of comorbid medical conditions. HISTORY OF PRESENT ILLNESS: Mr. Perez is a 77-year-old male patient. He has a history of diabetes. He has a history of arthritis. In addition to this , also he carries a history of carotid aneurysm, which he is being followed for over at [place]. He has a history of neuropathy, migraines, questionable history of peptic ulcer disease versus GERD. He was evaluated in the PACU. He did undergo general anesthesia, so he is drowsy, but he is able to awake and is able to tell me that he is having pain in his knee. He denies chest pain, abdominal pain, or any nausea or vomiting. He denies having any lightheadedness. He states he just feels tired. He states that he does have sensation to his legs and he is able to move them and he denies having any headache or visual disturbances but because of his medical complexity, we were asked to evaluate. He presented today for a left total knee replacement with Dr. Hall as he had failed conservative therapy and it was felt that a knee replacement would be warranted, which he underwent and again because of his complexity, we were asked to evaluate in consult. PAST MEDICAL HISTORY: Significant for: 1. Diabetes. 2. Arthritis. 3. Carotid aneurysm. 4. He had an MRA of the head and neck just done in November of this year. Again, I do not have the actual imaging, but I have a report from Dr. Woodard' office, which is a recent MRA head that does not reveal aneurysm. Also carries a history of neuropathy, migraines and questionable history of peptic ulcer or GERD. It sounds that he had an imaging done in [place]. We will try to get this to confirm the diagnosis. PAST SURGICAL HISTORY: 1. He has had a left and right hernia repair, inguinal. 2. He has also had done today a left total knee replacement. MEDICATIONS: Home medications include: 1. Melatonin 5 mg p.o. at bedtime. 2. Gabapentin 300 mg p.o. t.i.d. 3. Metformin 500 mg daily in the morning. 4. Multivitamin 1 tablet daily. 5. The patient is also on Carafate 1 g a.c. 6. Omeprazole 20 mg daily. ALLERGIES TO MEDICATIONS: Include IV DYE and BEES. FAMILY HISTORY: His mother related to bowel obstruction and father related to subarachnoid hemorrhage from trauma. SOCIAL HISTORY: He is a former smoker. He rarely drinks alcohol. Surrogate decision maker is his son and his . REVIEW OF SYSTEMS: There is no documented fever. He denies having any significant weight change. There is no double vision. He denies having any rhinorrhea. There is no sore throat. No thyroid enlargement. He denies having any chest pain. Again, there is no orthopnea. There is no nocturnal dyspnea. He denied having any abdominal pain. There was no nausea. There is no vomiting. There is no dysuria, no frequency. No seizure, no loss of consciousness. No pruritus and no skin ulcerations. Review of 14 systems completed, all others negative. PHYSICAL EXAMINATION: Vital Signs: Blood pressure of 163/92 with a pulse of 68 , respirations were 10, O2 sat 100% on 3 L, temperature was 97.2. I do know that his blood pressure preoperatively was running in the 170s, during the case it ran in the 130s. Generally, at this time, Mr. Perez is a 77-year-old male patient. He is evaluated in the PACU. He does not appear to be in any acute distress. He appears to be well nourished, well developed. HEENT: Head : Atraumatic, normocephalic. Eyes: EOMs intact. Sclerae are anicteric and not pale. Neck was supple. Throat: Oral mucosa appears to be moist. No oropharyngeal erythema. Heart: Sounds S1, S2. He had a regular rate and rhythm. No murmurs, rubs, or gallops. Lungs were clear to auscultation bilaterally. There are no wheezes, rales, or rhonchi. His abdomen was soft. It was flat. It was nontender. Bowel sounds were hypoactive. Extremities: Pulses were 2+ throughout. He is able to move all 4 extremities. He has limited range of motion of the left lower extremity as this is the operative leg , but he has got 5/5 strength. No peripheral edema. Neurologically, he is awake , he is alert, he is oriented x3. He is drowsy, but he is able to make his needs known. He has no gross focal deficits. His skin is intact with the exception he has an incision to left lower extremity, which is covered with an Chris dressing. It is clean, dry, and intact. LABORATORY DATA/DIAGNOSTIC STUDIES: His labs which were preoperative labs revealed urine culture with no growth. He had a sodium of 140, potassium of 4.3 , chloride of 106, bicarb 29, his BUN was 14, creatinine of 0.81, his glucose was 157. AST 17, ALT 16, alk phos 86. INR is 0.96. WBC of 6.4, RBC of 4.66, hemoglobin 13.0, hematocrit of 39, platelet count 255,000. Again, preop urinalysis was negative. He had a preop EKG, which shows a sinus bradycardia with a rate of 59. He had a normal axis. He had no ST elevation. He appeared to have LVH on the EKG, but no T-wave inversions. His chest x-ray showed no active cardiopulmonary disease. Old medical records were reviewed. ASSESSMENT AND PLAN: Mr. Perez is a 77-year-old male patient coming into the orthopedic services today for an elective total knee. We were asked to evaluate in consult. Recommendations at this point: 1. Status post left total knee. We will defer the management to Dr. Hall and her team. 2. Diabetes. I will place him on a lispro sliding scale. 3. Arthritis. Follow up with his PCP. 4. History of carotid aneurysm. Again, last head and neck MRI did not see this , but he can follow up with his PCP. 5. History of neuropathy. Continue his gabapentin. 6. Hypertension. He is currently not on any antihypertensives, but I do note that his blood pressures here have been in the 160s. He is in pain in the PACU. Before starting something, I would like to trend this, monitor it. He is not having any symptoms. If it persistently runs in the 160s, we may need to consider adding either an CHRIS inhibitor or possibly adding a low dose Norvasc , but we will evaluate. He is in the 160s, it was in the 170s, it has come down and he is in pain, so I would like to just monitor. 7. Question of gastroesophageal reflux disease versus peptic ulcer disease. I am going to get the imaging reports. I have asked for the nursing staff to get the imaging reports he has had, either a CT abdomen and pelvis a month and a half ago or an MRI of the abdomen and pelvis according to the patient's son, so I would like to get these reports. In the meantime though, he is on Prilosec and Carafate. I have added those to the med rec and we will continue those as he is taking them still. 8. DVT prophylaxis. Defer to the primary team. 9. Fluids, electrolytes, and nutrition. I would recommend a consistent carb diet. 10. Code status. Full code. TIME SPENT: Time spent on the consult was 60 minutes, greater than half that time was spent [id number] with the patient, the other half time was spent going over over the plan of care. I did discuss the plan of care with my attending, Maynor; she is in agreement. THIAGO GAMBOA, CRISTAL [id number]/CPS #: [id number] MICHAELA
[2018-06-21] MEDS: Magnesium Hydroxide LIQ* 30 ML UDC PO SCH (21:18)
[2018-06-21] MEDS: Docusate CAP* 100 MG PO SCH (21:19)
[2018-06-21] MEDS: Morphine VIAL* 4 MG/ML VIAL (1 ml vial) IV PRN (21:19)
[2018-06-21] MEDS: oxyCODONE TAB* 5 MG TAB PO PRN (21:59)
[2018-06-22] MEDS: Morphine VIAL* 4 MG/ML VIAL (1 ml vial) IV PRN ×4 (00:05→18:58)
[2018-06-22] MEDS: traMADol TAB* 50 MG PO PRN ×3 (00:06→18:59)
[2018-06-22] MEDS: Phenazopyridine TAB* 100 MG PO SCH ×4 (00:06→20:39)
[2018-06-22] MEDS: oxyCODONE/Acetamin 5/325 MG* TAB PO PRN ×4 (01:13→20:38)
[2018-06-22] MEDS: Lactated Ringers 1000 ML Bag* 1,000 ML IV SCH (01:13)
[2018-06-22] MEDS: Acetaminophen TAB* 325 MG PO SCH ×3 (01:14→16:16)
[2018-06-22] MEDS: ceFAZolin 1 GM in Dextrose (*) 1 GM/50 ML BAG IVPB SCH ×2 (02:29→10:10)
[2018-06-22] MEDS: oxyCODONE TAB* 5 MG TAB PO PRN ×3 (05:12→17:55)
[2018-06-22 05:50] LABS: Hematocrit 36 % (42-52); Hemoglobin 11.9 g/dl (14.0-18.0); Mean Platelet Volume 7.6 fL (7.4-10.4); Platelet Count 268 10^3/ul (150-450)
[2018-06-22 05:58] LABS: INR 1.09 (0.77-1.02)
[2018-06-22] MEDS: Omeprazole CAP (NF) 20 MG CAP.DR PO SCH (06:04)
[2018-06-22 06:07] LABS: BUN/Creatinine Ratio 19.7 (8-20); Calcium 9.2 mg/dL (8.6-10.3); EGFR Non-African American 107.9 (>60); Potassium 4.2 mmol/L (3.5-5.0)
[2018-06-22] MEDS: Insulin LISPRO* 1 UNITS UNIT SUBCUT SCH ×3 (07:40→17:52)
[2018-06-22] MEDS: Docusate CAP* 100 MG PO SCH ×2 (08:03→20:39)
[2018-06-22] MEDS: Magnesium Hydroxide LIQ* 30 ML UDC PO SCH ×2 (08:03→20:39)
[2018-06-22] MEDS: Gabapentin CAP(*) 300 MG PO SCH ×3 (08:03→20:38)
[2018-06-22] MEDS: amLODIPine TAB* 5 MG PO SCH (08:03)
[2018-06-22] MEDS: Sucralfate TAB* 1 GM PO SCH ×3 (08:03→17:06)
--- NOTE | 2018-06-22 08:31 | PN ---
Subjective Date of Service: 06/22/18 Interval History: Patient seen and examined at bedside. Denies fever, chills, shortness of breath , chest discomfort, N/V/D. Reports that pain is under fair control at a 5/10 at this time. No complaints at this time. Family History: Unchanged from Admission Social History: Unchanged from Admission Past Medical History: Unchanged from Admission Objective Active Medications: Acetaminophen (Tylenol Tab*) 975 mg PO Q8H JACQUELIN Amlodipine Besylate (Norvasc Tab*) 5 mg PO DAILY JACQUELIN Bisacodyl (Dulcolax Supp*) 10 mg CO DAILY PRN Reason: constipation Cyclobenzaprine HCl (Flexeril Tab*) 10 mg PO TID PRN Reason: SPASMS Dextrose (D50w Syringe 50 Ml*) 12.5 gm IV PUSH .FOR FS < 60 - SS PRN Reason: FS < 60 Diphenhydramine HCl (Benadryl Po*) 25 mg PO Q6H PRN Reason: INSOMNIA Docusate Sodium (Colace Cap*) 100 mg PO BID [facility] Enoxaparin Sodium (Lovenox(*)) 30 mg SUBCUT Q24H [facility] Gabapentin (Neurontin Cap(*)) 300 mg PO TID JACQUELIN Hydralazine HCl (Apresoline Iv*) 5 mg IV SLOW PU Q6H PRN Reason: BLOOD PRESSURE Cefazolin Sodium/Dextrose (Kefzol 1 Gm In Dextrose Duplex (*)) 1 gm in 50 mls @ 200 mls/hr IVPB Q8H [facility] Stop: 06/22/18 10:14 Lactated Ringer's (Lactated Ringers 1000 Ml Bag*) 1,000 mls @ 100 mls/hr IV PER RATE [facility] Insulin Human Lispro (Humalog*) 0 units SUBCUT AC [facility]; Protocol Lactulose (Lactulose*) 30 ml PO Q6H PRN Reason: constipation Magnesium Hydroxide (Milk Of Magnesia Liq*) 30 ml PO BID JACQUELIN Magnesium Hydroxide (Milk Of Magnesia Liq*) 30 ml PO Q6H PRN Reason: constipation Morphine Sulfate (Morphine Vial*) 2 mg IV Q2H PRN Reason: PAIN - SEVERE Omeprazole (Prilosec Cap*) 20 mg PO 0600 JACQUELIN Ondansetron HCl (Zofran Inj*) 4 mg IV Q6H PRN Reason: nausea Oxycodone HCl (Roxycodone Tab*) 10 mg PO Q4H PRN Reason: moderate to severe pain Oxycodone/Acetaminophen (Percocet 5/325 Tab*) 1 tab PO Q3H PRN Reason: PAIN - MODERATE Oxycodone/Acetaminophen (Percocet 5/325 Tab*) 2 tab PO Q3H PRN Reason: PAIN - MODERATE Phenazopyridine HCl (Pyridium Tab*) 100 mg PO TID JACQUELIN Polyethylene Glycol/Electrolytes (Miralax*) 17 gm PO DAILY PRN Reason: Constipation Sucralfate (Carafate*) 1 gm PO AC JACQUELIN Tramadol HCl (Ultram*) 50 mg PO Q6H PRN Reason: PAIN Vital Signs - 8 hr 06/22/18 06/22/18 06/22/18 00:30 01:13 02:02 Temperature Pulse Rate Respiratory 18 20 Rate Blood Pressure (mmHg) O2 Sat by Pulse 96 Oximetry 06/22/18 06/22/18 06/22/18 02:31 02:34 03:00 Temperature Pulse Rate Respiratory 18 18 16 Rate Blood Pressure (mmHg) O2 Sat by Pulse Oximetry 06/22/18 06/22/18 06/22/18 04:34 04:46 05:12 Temperature 97.6 F Pulse Rate 71 Respiratory 16 16 18 Rate Blood Pressure 147/72 (mmHg) O2 Sat by Pulse 97 Oximetry 06/22/18 06/22/18 06/22/18 06:06 07:18 07:39 Temperature 97.6 F Pulse Rate 64 Respiratory 18 17 18 Rate Blood Pressure 125/65 (mmHg) O2 Sat by Pulse 96 Oximetry 06/22/18 06/22/18 07:43 08:03 Temperature Pulse Rate Respiratory 18 20 Rate Blood Pressure (mmHg) O2 Sat by Pulse 96 Oximetry Oxygen Devices in Use Now: None Appearance: NAD, laying in bed Respiratory: Symmetrical Chest Expansion and Respiratory Effort, Clear to Auscultation Cardiovascular: NL Sounds; No Murmurs; No JVD, RRR Abdominal: NL Sounds; No Tenderness; No Distention Extremities: No Edema Skin: - - Dressing to left knee clean, dry, and intact Lines/Tubes/Other Access: Clean, Dry and Intact Peripheral IV - site benign Nutrition: Taking PO's Result Diagrams: 06/22/18 05:34 06/22/18 05:34 Assess/Plan/Problems-Billing Assessment: Mr. Perez is a 77 yo male with PMH significant for DM, neuropathy, migraines , GERD, carotid aneurysm and arthritis who presented to the hospital for a elective left total knee arthroplasty. - Patient Problems (1) Status post total left knee replacement Code(s): Z96.652 - PRESENCE OF LEFT ARTIFICIAL KNEE JOINT SNOMED Code(s): 5608182024366 Comment: - POD #1 - Management per Orthopedics - Continue pain management and bowel regimen (2) Diabetes Code(s): E11.9 - TYPE 2 DIABETES MELLITUS WITHOUT COMPLICATIONS SNOMED Code(s) : 95627247 Comment: - Glucose 120-210's - Hold metformin - Continue Lispro SS (3) Arthritis Code(s): M19.90 - UNSPECIFIED OSTEOARTHRITIS, UNSPECIFIED SITE SNOMED Code(s) : 7630147 Comment: - Continue pain management (4) Neuropathy Code(s): G62.9 - POLYNEUROPATHY, UNSPECIFIED SNOMED Code(s): 293427423 Comment: - Secondary to DM - Continue gabapentin (5) HTN (hypertension) Code(s): I10 - ESSENTIAL (PRIMARY) HYPERTENSION SNOMED Code(s): 79319299 Comment: - SBP 120-170's - Initially hypertensive suspect secondary to pain in PACU/post op - BPs are improving and now normotensive - Not currently on medications, continue to follow. Will start antihypertensives if indicated (6) GERD (gastroesophageal reflux disease) Code(s): K21.9 - GASTRO-ESOPHAGEAL REFLUX DISEASE WITHOUT ESOPHAGITIS SNOMED Code(s): 252453992 Comment: - Continue carafate and prilosec (7) DVT prophylaxis Code(s): RGE8124 - SNOMED Code(s): 990049107 Comment: - Lovenox bridge to warfarin per Ortho (8) Full code status Code(s): Z78.9 - OTHER SPECIFIED HEALTH STATUS SNOMED Code(s): 024615578 Status and Disposition: Inpatient. Discharge per Orthopedic surgery. Thank you for this consultation, we will continue to follow along. Attending: Osvaldo Mitchell
[2018-06-22] MEDS ORDERED: metFORMIN* 500 MG TAB PO SCH (09:00)
[2018-06-22] MEDS: Enoxaparin(*) 30 MG/0.3 ML SYR SUBCUT SCH (11:37)
--- NOTE | 2018-06-22 11:57 | OP ---
OPERATIVE REPORT: DATE OF OPERATION: 06/21/18 DATE OF : 42 SURGEON: Angie Hlal MD. IRRIGATION SUPERVISOR: TEVIN Sherman. Ms. Lockett did help throughout the procedure with preparation of the leg, wound retraction, manipulat ion of the knee, and wound closure. ANESTHESIOLOGIST: Dr. Greenwood. ANESTHESIA: General. PRE-OP DIAGNOSIS: Severe endstage degenerative osteoarthritis of the left knee joint. POST-OP DIAGNOSIS: Severe endstage degenerative osteoarthritis of the left knee joint. OPERATIVE PROCEDURE: Left total knee arthroplasty. TOURNIQUET TIME: 55 minutes. ESTIMATED BLOOD LOSS: 200 cc. COMPLICATIONS: None. SPECIMEN: Bone and cartilage from the left knee joint sent to Pathology. HARDWARE USED: This is cemented [employer] total knee arthroplasty hardware. For the femur, a size 6 left posterior stabilized Legion femoral component. For the tibia, a size 6 left Jany II t ibial base plate. For the insert, a 9-mm posterior stabilized articular insert, size 5/6. For the p atella, a 35-mm 3-peg all-poly patella. BRIEF HISTORY AND INDICATIONS: Mr. Perez is a 77-year-old gentleman with years of increasingly se kianna left knee pain. He failed conservative treatment with antiinflammatories, pain medication, and intraarticular injection. Due to continued pain and decreased quality of life, he elected to undergo left total knee arthroplasty. Informed consent was obtained from the patient. He understood the ri sks of surgery included, but were not limited to bleeding, infection, damage to nearby structures, co ntinued pain, need for further surgery, intraoperative fracture, nerve palsy, hardware failure or loo sening, knee stiffness, loss of motion, stroke, heart attack, blood clot, and . He wished to pr oceed. INTRAOPERATIVE FINDINGS: Intraoperatively, the patient was noted to have 15-degree flexion contractu re before the case. This was improved to full extension. He had severe endstage arthritis with loss of cartilage along in all 3 compartments. DESCRIPTION OF PROCEDURE: Mr. Perez was identified in the preanesthesia unit. His left lower extr emity was marked as the correct operative side. Informed consent was signed and placed in the chart. The patient was taken to the operating room and placed under general anesthesia. A Marion catheter was placed. Tourniquet was placed on the left thigh. Left lower extremity was prepped and draped in the usual sterile fashion. Preop time-out was made to correctly identify the patient, side and site . Appropriate perioperative antibiotics were given within 1 hour of incision. Tourniquet was inflated until the tourniquet time for this procedure was 55 minutes. A midline incis ion was made with a 10 blade and carried down to the extensor mechanism. A new 10 blade was used to make a standard medial parapatellar arthrotomy. The patella was subluxed laterally. Electrocautery was used to subperiosteally elevate the soft tissue off the superomedial tibia to the mid sagittal pl ane. The knee was flexed up. The anterior horn of the lateral meniscus and ACL were sharply release d. A drill was used to enter the distal femur. Intramedullary distal femoral cutting guide was pinne d on the distal femur. Oscillating saw was used to make the distal femoral cut. Next, the external r otation guide was pinned on the distal femur. The distal femur was sized to a size 6. Size 6 multi- cutting jig was pinned on the distal femur and the oscillating saw was used to make the appropriate 4 chamfer cuts. PCL was completely released. Tibia was subluxed anteriorly. Extramedullary tibial cutting guide was pinned on the proximal tibia. Oscillating saw was used to make the proximal tibial cut perpendicula r to the mechanical axis of the tibia. The bone was carefully removed. The knee was brought out int o full extension. The spacer block had excellent fit. There was good alignment of the knee. Medial and lateral ligaments were well balanced. The flexion and extension gaps were well balanced. The k nee was flexed up. The lamina compo caster was placed both medially and laterally. Any remaining menisc us was carefully removed using electrocautery. Curved osteotome was used to remove any posterior oste ophytes. Tibial tray and drop dwaine were placed and confirmed a satisfactory tibial cut. A left size 6 femoral trial was impacted on to the distal femur. This had excellent fit and stabilit y. The box for the posterior stabilized implant was prepared using a reamer and box cut osteotome. A size 6 tibial tray trial with a 9- mm insert trial was placed and the knee was taken through a rang e of motion. The knee had full extension to 130 degrees of flexion with satisfactory patellofemoral tracking. Patella was everted. 9 mm of patellar bone and cartilage was carefully removed using an o scillating saw. Patella was sized to a size 35. Peg holes were drilled through the size 35 guide. Trial 35 patella was placed and the knee was taken through a range of motion. There was satisfactory patellofemoral tracking. All trials were carefully removed. The tibia was subluxed anteriorly and sized to a size 6. Proxima l tibia was prepared using a size 6 keel punch. All bony cut surfaces were copiously irrigated with sterile saline and dried. Final implants were cemented into place starting with the tibia followed b y the femur and last the patella. A 9-mm insert trial was placed and the knee was brought out into f ull extension. Tourniquet was turned down at 55 minutes. The knee was copiously irrigated with ster ile saline. Electrocautery was used to obtain meticulous hemostasis. Once the cement had fully cure d, the insert trial was removed. Any excess cement was removed from around the capsule and hardware. A 9-mm insert trial was chosen as the final insert. This was locked into position on the tibial tr ay. Stability of the insert was checked and rechecked and noted to be stable. The knee was once agai n copiously irrigated with sterile saline. The extensor mechanism was closed using interrupted #1 Vi cryls. The rest of the incision was closed in a layered fashion using 0 and 2-0 Vicryls. The skin w as closed using running 3-0 nylon suture. Sterile Xeroform, 4x4s, and Webril were used to cover the incision. Chris wrap and cold pack were placed over this. The patient's anesthesia was reversed witho ut difficulty. He was taken to the PACU in stable condition. Intended weightbearing will be weightb earing as tolerated. Intended DVT prophylaxis will be Coumadin with a Lovenox bridge. [id number]/[facility] #: [id number]
--- NOTE | 2018-06-22 15:59 | PN ---
Progress Note - Progress Note Date of Service: 06/22/18 SOAP: Subjective: []Patient seen and examined at bedside. He was in 10/10 pain after PT which subside to 8/10 at rest this afternoon. Denies CP, SOB, dizziness, nausea. Objective: []General: Well appearing, NAD LLE: left knee dressing CDI, cryo unit in use. Thigh is soft, DF/PF intact. Dp2+ , sensation intact distally, capillary refill less than two seconds distally. Calves supple and nontender without erythema, edema or palpable cords Assessment: []POD 1 sp left total knee replacement Plan: []WBAT PT/OT Lovenox bridge to coumadin. coumadin 8 mg Long acting morphine added for pain control. Patient is alert without confusion Vital Signs Temp 97.9 F 06/22/18 11:15 Pulse 68 06/22/18 11:15 Resp 20 06/22/18 14:27 BP 137/67 06/22/18 11:15 Pulse Ox 96 06/22/18 11:15 Intake & Output 06/21/18 06/22/18 06/22/18 18:59 06:59 18:59 Intake Total 7993 709 5222 Output Total 850 2898 825 Balance 950 -2098 763 Weight 154 lb Intake: IV Fluids 1800 1068 ABX - CEFAZOLIN 100 LR 1700 968 NS 50ML, Cefazolin 2G 50 TXA 60MG/50ML NS 50 Oral 800 520 Output: Urine 825 Marion 850 2898 Laboratory Last Values Hgb 11.9 g/dl (14.0-18.0) L 06/22/18 05:34 Hct 36 % (42-52) L 06/22/18 05:34 Plt Count 268 10^3/ul (150-450) 06/22/18 05:34 MPV 7.6 fL (7.4-10.4) 06/22/18 05:34 INR (Anticoag Therapy) 1.09 (0.77-1.02) H 06/22/18 05:34 Sodium 139 mmol/L (135-145) 06/22/18 05:34 Potassium 4.2 mmol/L (3.5-5.0) 06/22/18 05:34 Chloride 104 mmol/L (101-111) 06/22/18 05:34 Carbon Dioxide 29 mmol/L (22-32) 06/22/18 05:34 Anion Gap 6 mmol/L (2-11) 06/22/18 05:34 BUN 14 mg/dL (6-24) 06/22/18 05:34 Creatinine 0.71 mg/dL (0.67-1.17) 06/22/18 05:34 Est GFR ( Amer) 130.5 (>60) 06/22/18 05:34 Est GFR (Non-Af Amer) 107.9 (>60) 06/22/18 05:34 BUN/Creatinine Ratio 19.7 (8-20) 06/22/18 05:34 Glucose 144 mg/dL (70-100) H 06/22/18 05:34 POC Glucose (mg/dL) 145 mg/dL (70-100) H 06/22/18 11:37 Calcium 9.2 mg/dL (8.6-10.3) 06/22/18 05:34
[2018-06-22] MEDS ORDERED: Warfarin TAB(*) 4 MG PO ONE (17:00)
[2018-06-22] MEDS: Morphine TAB Extended Release (*) 30 MG TAB.ER PO SCH (17:06)
[2018-06-23] MEDS: Acetaminophen TAB* 325 MG PO SCH ×4 (00:31→20:51)
[2018-06-23] MEDS: Morphine VIAL* 4 MG/ML VIAL (1 ml vial) IV PRN (02:45)
[2018-06-23] MEDS: oxyCODONE/Acetamin 5/325 MG* TAB PO PRN ×3 (02:45→12:54)
[2018-06-23] MEDS: Omeprazole CAP (NF) 20 MG CAP.DR PO SCH (05:16)
[2018-06-23] MEDS: oxyCODONE TAB* 5 MG TAB PO PRN (05:16)
[2018-06-23] MEDS: Morphine TAB Extended Release (*) 30 MG TAB.ER PO SCH ×2 (05:16→17:17)
[2018-06-23 06:38] LABS: Hematocrit 36 % (42-52); Hemoglobin 11.8 g/dl (14.0-18.0); Mean Platelet Volume 7.6 fL (7.4-10.4); Platelet Count 245 10^3/ul (150-450)
[2018-06-23 06:50] LABS: INR 1.82 (0.77-1.02)
[2018-06-23] MEDS: Insulin LISPRO* 1 UNITS UNIT SUBCUT SCH ×3 (07:42→17:54)
--- NOTE | 2018-06-23 09:41 | PN ---
Progress Note - Progress Note Date of Service: 06/23/18 SOAP: Subjective: []Patient seen and examined at bedside. His pain level is better controlled today though still with reported 7/10 pain of knee . Denies CP, SOB, dizziness, nausea. Objective: [] General: Well appearing, NAD LLE: left knee dressing changed, incision CDI, cryo unit in use. Thigh is soft, DF/PF intact. Dp2+, sensation intact distally, capillary refill less than two seconds distally. Calves supple and nontender without erythema, edema or palpable cords Assessment: []POD 2 sp left total knee replacement Plan: []WBAT PT/OT. Lovenox bridge to coumadin. coumadin 6 mg Needs PMRU or SNF Vital Signs Temp 98.6 F 06/23/18 07:28 Pulse 71 06/23/18 07:28 Resp 18 06/23/18 08:53 BP 127/64 06/23/18 07:28 Pulse Ox 94 06/23/18 08:00 Intake & Output 06/22/18 06/23/18 06/23/18 18:59 06:59 18:59 Intake Total 1948 720 210 Output Total 1125 550 Balance 823 170 210 Intake: IV Fluids 1068 ABX - CEFAZOLIN 100 LR 968 Oral 880 360 210 NG Tube Irrigate Amount 360 Output: Urine 1125 550 Laboratory Last Values Hgb 11.8 g/dl (14.0-18.0) L 06/23/18 06:25 Hct 36 % (42-52) L 06/23/18 06:25 Plt Count 245 10^3/ul (150-450) 06/23/18 06:25 MPV 7.6 fL (7.4-10.4) 06/23/18 06:25 INR (Anticoag Therapy) 1.82 (0.77-1.02) H 06/23/18 06:25 Sodium 139 mmol/L (135-145) 06/22/18 05:34 Potassium 4.2 mmol/L (3.5-5.0) 06/22/18 05:34 Chloride 104 mmol/L (101-111) 06/22/18 05:34 Carbon Dioxide 29 mmol/L (22-32) 06/22/18 05:34 Anion Gap 6 mmol/L (2-11) 06/22/18 05:34 BUN 14 mg/dL (6-24) 06/22/18 05:34 Creatinine 0.71 mg/dL (0.67-1.17) 06/22/18 05:34 Est GFR ( Amer) 130.5 (>60) 06/22/18 05:34 Est GFR (Non-Af Amer) 107.9 (>60) 06/22/18 05:34 BUN/Creatinine Ratio 19.7 (8-20) 06/22/18 05:34 Glucose 144 mg/dL (70-100) H 06/22/18 05:34 POC Glucose (mg/dL) 125 mg/dL (70-100) H 06/23/18 07:41 Calcium 9.2 mg/dL (8.6-10.3) 06/22/18 05:34
[2018-06-23] MEDS: Docusate CAP* 100 MG PO SCH ×2 (10:34→20:52)
[2018-06-23] MEDS: Phenazopyridine TAB* 100 MG PO SCH ×3 (10:35→20:52)
[2018-06-23] MEDS: Gabapentin CAP(*) 300 MG PO SCH ×3 (10:36→20:51)
[2018-06-23] MEDS: Sucralfate TAB* 1 GM PO SCH ×3 (10:40→17:17)
[2018-06-23] MEDS: amLODIPine TAB* 5 MG PO SCH (10:41)
[2018-06-23] MEDS: Magnesium Hydroxide LIQ* 30 ML UDC PO SCH ×2 (10:47→20:52)
[2018-06-23] MEDS: traMADol TAB* 50 MG PO PRN (10:53)
[2018-06-23] MEDS: Enoxaparin(*) 30 MG/0.3 ML SYR SUBCUT SCH (11:58)
[2018-06-23] MEDS ORDERED: Warfarin TAB(*) 6 MG PO ONE (17:00)
--- NOTE | 2018-06-23 17:50 | PN ---
Subjective Date of Service: 06/23/18 Interval History: Patient is feeling well with improving pain. Patient has not had a BM but denies a feeling of constipation. Patient able to ambulate and urinate. Patient denies F/C, N/V, abdominal pain, or other pain. Family History: Unchanged from Admission Social History: Unchanged from Admission Past Medical History: Unchanged from Admission Objective Active Medications: Acetaminophen (Tylenol Tab*) 975 mg PO Q8H [facility] Last Admin: 06/23/18 15:23 Dose: Not Given Amlodipine Besylate (Norvasc Tab*) 5 mg PO DAILY [facility] Last Admin: 06/23/18 10:41 Dose: 5 mg Bisacodyl (Dulcolax Supp*) 10 mg [place] DAILY PRN PRN Reason: constipation Cyclobenzaprine HCl (Flexeril Tab*) 10 mg PO TID PRN PRN Reason: SPASMS Last Admin: 06/22/18 16:15 Dose: 10 mg Dextrose (D50w Syringe 50 Ml*) 12.5 gm IV PUSH .FOR FS < 60 - SS PRN PRN Reason: FS < 60 Diphenhydramine HCl (Benadryl Po*) 25 mg PO Q6H PRN PRN Reason: INSOMNIA Docusate Sodium (Colace Cap*) 100 mg PO BID [facility] Last Admin: 06/23/18 10:34 Dose: 100 mg Enoxaparin Sodium (Lovenox(*)) 30 mg SUBCUT Q24H [facility] Last Admin: 06/23/18 11:58 Dose: 30 mg Gabapentin (Neurontin Cap(*)) 300 mg PO TID [facility] Last Admin: 06/23/18 14:10 Dose: 300 mg Hydralazine HCl (Apresoline Iv*) 5 mg IV SLOW PU Q6H PRN PRN Reason: BLOOD PRESSURE Last Admin: 06/21/18 13:54 Dose: 5 mg Insulin Human Lispro (Humalog*) 0 units SUBCUT AC [facility]; Protocol Last Admin: 06/23/18 12:20 Dose: 1 units Lactulose (Lactulose*) 30 ml PO Q6H PRN PRN Reason: constipation Last Admin: 06/23/18 10:33 Dose: 30 ml Magnesium Hydroxide (Milk Of Magnesia Liq*) 30 ml PO BID [facility] Last Admin: 06/23/18 10:47 Dose: Not Given Magnesium Hydroxide (Milk Of Magnesia Liq*) 30 ml PO Q6H PRN PRN Reason: constipation Morphine Sulfate (Morphine Vial*) 2 mg IV Q2H PRN PRN Reason: PAIN - SEVERE Last Admin: 06/23/18 02:45 Dose: 2 mg Morphine Sulfate (Ms Contin(*)) 30 mg PO Q12H [facility] Last Admin: 06/23/18 17:17 Dose: 30 mg Omeprazole (Prilosec Cap*) 20 mg PO 0600 [facility] Last Admin: 06/23/18 05:16 Dose: 20 mg Ondansetron HCl (Zofran Inj*) 4 mg IV Q6H PRN PRN Reason: nausea Oxycodone HCl (Roxycodone Tab*) 10 mg PO Q4H PRN PRN Reason: moderate to severe pain Last Admin: 06/23/18 05:16 Dose: 10 mg Oxycodone/Acetaminophen (Percocet 5/325 Tab*) 1 tab PO Q3H PRN PRN Reason: PAIN - MODERATE Oxycodone/Acetaminophen (Percocet 5/325 Tab*) 2 tab PO Q3H PRN PRN Reason: PAIN - MODERATE Last Admin: 06/23/18 12:54 Dose: 2 tab Phenazopyridine HCl (Pyridium Tab*) 100 mg PO TID [facility] Last Admin: 06/23/18 14:10 Dose: 100 mg Polyethylene Glycol/Electrolytes (Miralax*) 17 gm PO DAILY PRN PRN Reason: Constipation Sucralfate (Carafate*) 1 gm PO [facility] Last Admin: 06/23/18 17:17 Dose: 1 gm Tramadol HCl (Ultram*) 50 mg PO Q6H PRN PRN Reason: PAIN Last Admin: 06/23/18 10:53 Dose: 50 mg Vital Signs - 8 hr 06/23/18 06/23/18 06/23/18 09:51 10:36 10:47 Temperature Pulse Rate 76 Respiratory 18 12 18 Rate Blood Pressure 158/78 (mmHg) O2 Sat by Pulse Oximetry 06/23/18 06/23/18 06/23/18 10:53 11:13 12:54 Temperature 98.3 F Pulse Rate 69 Respiratory 18 17 18 Rate Blood Pressure 113/55 (mmHg) O2 Sat by Pulse 92 Oximetry 06/23/18 06/23/18 06/23/18 13:15 14:10 15:22 Temperature Pulse Rate Respiratory 16 18 18 Rate Blood Pressure (mmHg) O2 Sat by Pulse Oximetry 06/23/18 06/23/18 06/23/18 15:31 17:17 17:21 Temperature 97.7 F Pulse Rate 75 Respiratory 16 16 16 Rate Blood Pressure 128/63 (mmHg) O2 Sat by Pulse 95 Oximetry Oxygen Devices in Use Now: None Appearance: Patient is a 77yo male who appears stated age and is sitting in the bed in NAD. Eyes: No Scleral Icterus, PERRLA Ears/Nose/Mouth/Throat: NL Teeth, Lips, Gums, Clear Oropharnyx, Mucous Membranes Moist Neck: NL Appearance and Movements; NL JVP, Trachea Midline Respiratory: Symmetrical Chest Expansion and Respiratory Effort, Clear to Auscultation Cardiovascular: NL Sounds; No Murmurs; No JVD, RRR, No Edema Abdominal: NL Sounds; No Tenderness; No Distention, No Hepatosplenomegaly Lymphatic: No Cervical Adenopathy Extremities: No Edema, No Clubbing, Cyanosis Skin: No Nodules or Sclerosis, - - Left Knee covered in bulky dressing. Neurological: Alert and Oriented x 3, NL Sensation, NL Muscle Strength and Tone , - - CN II-XII intact. Result Diagrams: 06/23/18 06:25 06/22/18 05:34 Assess/Plan/Problems-Billing Assessment: Mr. Perez is a 77 yo male with PMH significant for DM, neuropathy, migraines , GERD, carotid aneurysm and arthritis who presented to the hospital for a elective left total knee arthroplasty. - Patient Problems (1) HTN (hypertension) Current Visit: Yes Status: Acute Code(s): I10 - ESSENTIAL (PRIMARY) HYPERTENSION SNOMED Code(s): 63944651 Comment: - BPs are improving and now normotensive - Not currently on medications, continue to follow. Will start antihypertensives if indicated (2) Status post total left knee replacement Current Visit: Yes Status: Acute Code(s): Z96.652 - PRESENCE OF LEFT ARTIFICIAL KNEE JOINT SNOMED Code(s): 7902299647556 Comment: - POD #2 - Management per Orthopedics - Continue pain management and bowel regimen - SNF at discharge. (3) Diabetes Current Visit: Yes Status: Chronic Code(s): E11.9 - TYPE 2 DIABETES MELLITUS WITHOUT COMPLICATIONS SNOMED Code(s): 66302230 Comment: - Glucose well controlled - Hold metformin - Continue Lispro SS - Resume metformin at discharge. (4) GERD (gastroesophageal reflux disease) Current Visit: Yes Status: Chronic Code(s): K21.9 - GASTRO-ESOPHAGEAL REFLUX DISEASE WITHOUT ESOPHAGITIS SNOMED Code(s): 995639434 Comment: - Continue carafate and prilosec (5) Neuropathy Current Visit: Yes Status: Chronic Code(s): G62.9 - POLYNEUROPATHY, UNSPECIFIED SNOMED Code(s): 519614384 Comment: - Secondary to DM - Continue gabapentin (6) Arthritis Current Visit: No Status: Chronic Code(s): M19.90 - UNSPECIFIED OSTEOARTHRITIS, UNSPECIFIED SITE SNOMED Code(s): 8628562 Comment: - Continue pain management (7) DVT prophylaxis Current Visit: Yes Status: Acute Code(s): TNS3255 - SNOMED Code(s): 288647363 Comment: - Lovenox bridge to warfarin per Ortho (8) Full code status Current Visit: Yes Status: Acute Code(s): Z78.9 - OTHER SPECIFIED HEALTH STATUS SNOMED Code(s): 056715423 Status and Disposition: Inpatient. Discharge per Orthopedic surgery. Thank you for this consultation, we will continue to follow along from afar.
[2018-06-24] MEDS: Omeprazole CAP (NF) 20 MG CAP.DR PO SCH (05:03)
[2018-06-24] MEDS: Morphine TAB Extended Release (*) 30 MG TAB.ER PO SCH ×2 (05:03→16:42)
[2018-06-24 06:51] LABS: Hematocrit 37 % (42-52); Hemoglobin 12.1 g/dl (14.0-18.0); Mean Platelet Volume 7.5 fL (7.4-10.4); Platelet Count 253 10^3/ul (150-450)
[2018-06-24] MEDS: Insulin LISPRO* 1 UNITS UNIT SUBCUT SCH ×3 (07:13→17:47)
[2018-06-24] MEDS: Acetaminophen TAB* 325 MG PO SCH ×3 (07:16→23:23)
[2018-06-24] MEDS: Sucralfate TAB* 1 GM PO SCH ×3 (07:17→16:42)
[2018-06-24 07:23] LABS: INR 2.78 (0.77-1.02)
[2018-06-24] MEDS: Magnesium Hydroxide LIQ* 30 ML UDC PO SCH ×2 (07:54→21:22)
[2018-06-24] MEDS: amLODIPine TAB* 5 MG PO SCH (08:00)
[2018-06-24] MEDS: Docusate CAP* 100 MG PO SCH ×2 (08:01→21:12)
[2018-06-24] MEDS: Gabapentin CAP(*) 300 MG PO SCH ×3 (08:01→21:21)
[2018-06-24] MEDS: Phenazopyridine TAB* 100 MG PO SCH ×3 (08:01→21:12)
--- NOTE | 2018-06-24 08:40 | PN ---
Progress Note - Progress Note Date of Service: 06/24/18 SOAP: Subjective: []Patient seen and examined at bedside. He feels well without complaints. Denies CP, SOB, dizziness, nausea. Desires DC to CR. Pain of left knee well controlled Objective: [] General: Well appearing, NAD LLE: left knee dressing changed, incision CDI, cryo unit in use. Thigh is soft, DF/PF intact. Dp2+, sensation intact distally, capillary refill less than two seconds distally. Calves supple and nontender without erythema, edema or palpable cords Assessment: []POD 3 sp left total knee replacement Plan: []WBAT PT/OT. Lovenox before DC today, coumadin 2 mg today DC to CR today Vital Signs Temp 98.0 F 06/24/18 07:32 Pulse 86 06/24/18 07:32 Resp 18 06/24/18 08:01 BP 149/66 06/24/18 07:32 Pulse Ox 97 06/24/18 07:32 Intake & Output 06/23/18 06/24/18 06/24/18 18:59 06:59 18:59 Intake Total 660 380 Output Total 1050 1325 Balance -390 -945 Intake: Oral 660 380 Output: Urine 1050 1325 Other: Estimated Void Medium Medium # Voids 1 1 Laboratory Last Values Hgb 12.1 g/dl (14.0-18.0) L 06/24/18 06:38 Hct 37 % (42-52) L 06/24/18 06:38 Plt Count 253 10^3/ul (150-450) 06/24/18 06:38 MPV 7.5 fL (7.4-10.4) 06/24/18 06:38 INR (Anticoag Therapy) 2.78 (0.77-1.02) H 06/24/18 06:38 Sodium 139 mmol/L (135-145) 06/22/18 05:34 Potassium 4.2 mmol/L (3.5-5.0) 06/22/18 05:34 Chloride 104 mmol/L (101-111) 06/22/18 05:34 Carbon Dioxide 29 mmol/L (22-32) 06/22/18 05:34 Anion Gap 6 mmol/L (2-11) 06/22/18 05:34 BUN 14 mg/dL (6-24) 06/22/18 05:34 Creatinine 0.71 mg/dL (0.67-1.17) 06/22/18 05:34 Est GFR ( Amer) 130.5 (>60) 06/22/18 05:34 Est GFR (Non-Af Amer) 107.9 (>60) 06/22/18 05:34 BUN/Creatinine Ratio 19.7 (8-20) 06/22/18 05:34 Glucose 144 mg/dL (70-100) H 06/22/18 05:34 POC Glucose (mg/dL) 144 mg/dL (70-100) H 06/24/18 07:07 Calcium 9.2 mg/dL (8.6-10.3) 06/22/18 05:34
--- NOTE | 2018-06-24 09:52 | DS ---
CC: [facility] * DISCHARGE SUMMARY: DATE OF ADMISSION: 06/21/18 DATE OF DISCHARGE: 06/24/18 PROVIDER: Dr. Angie Hall.* (DICTATED BY TEVIN GUILLORY) PREOPERATIVE DIAGNOSIS: Severe end-stage degenerative osteoarthritis of the left knee joint. OPERATIVE PROCEDURE: Left total knee arthroplasty. HISTORY: Mr. Perez is a 77-year-old male with years of increasingly severe left knee pain. He has failed conservative management and elected to undergo left total knee arthroplasty. HOSPITAL COURSE: The patient was admitted to [facility] on . He underwent a left total knee arthroplasty without complication. He was also followed by our hospitalist service during his stay. Postop day 1, well appearing, in no acute distress. Dressing clean, dry, and intact. Dorsiflexion , plantar flexion intact. Sensation intact distally. DP pulse 2+. Postop day 2, well appearing, in no acute distress. Dressing changed; incision clean, dry , and intact. Postop day 3, well appearing, in no acute distress. Dressing changed; incision clean, dry and intact. Dorsiflexion flexion, plantar flexion intact. DP pulse 2+. Sensation intact distally. Cap refill less than 2 seconds distally. Vital Signs: Temperature 98.0, pulse 86, respiratory rate 18 , blood pressure 129/66, pulse ox 97. LABORATORY STUDIES: Hemoglobin 12.1, hematocrit 37, INR 2.78. The patient is deemed to be medically and orthopedically stable for discharge to [facility]. Patient will be discharged to [facility]. DISCHARGE MEDICATIONS: 1. Centrum multivitamins 5 daily. 2. Metformin 500 mg p.o. q.a.m. 3. Gabapentin 300 mg p.o. t.i.d. 4. Melatonin 5 mg p.o. at bedtime. 5. Sucralfate 1 g p.o. a.c. 6. Omeprazole 20 mg p.o. daily. 7. Docusate 100 mg p.o. b.i.d. p.r.n. 8. Oxycodone 10 mg p.o. q.4 hours p.r.n. 9. Percocet 5/325 one to two tabs every 4 to 6 hours as needed for pain, max daily dose of 10. 10. Warfarin 2 mg tab, 0 to 5 tabs daily, dose depends on INR. 11. Acetaminophen 975 mg p.o. q.8 hours p.r.n. DISCHARGE PLAN: Weightbearing as tolerated. Okay to shower on postop day 3. Nurse to wound checks. Nurse to draw vital signs on Mondays and . Coumadin dosin06/24/18 -- 2 mg, 06/25/18 -- 4 mg, 06/26/18 -- 4 mg, 06/27/18 -- 4 mg. Recheck INR on 06/28/18 for further dosing instruction. Pain control , Percocet 5/325 one to two tabs by mouth every 4 to 6 hours as needed for pain , max daily dose of 10 tabs per day. Follow up with Dr. Hall in 10 to 14 days. TEVIN GUILLORY [id number]/[facility] #: [id number] [facility]
[2018-06-24] MEDS ORDERED: Sodium Phosphate ADULT ENEMA* 118 ml bottle PR PRN (09:56)
[2018-06-24] MEDS: traMADol TAB* 50 MG PO PRN (11:31)
[2018-06-24] MEDS: Enoxaparin(*) 30 MG/0.3 ML SYR SUBCUT SCH (11:32)
[2018-06-24] MEDS ORDERED: ALPRAZolam TAB* 0.25 MG PO ONE (12:18)
[2018-06-24 13:45] LABS: EGFR Non-African American 95.4 (>60); Potassium 4.1 mmol/L (3.5-5.0)
[2018-06-24 13:46] LABS: Calcium 8.9 mg/dL (8.6-10.3); Magnesium 2.2 mg/dL (1.9-2.7)
[2018-06-24] MEDS ORDERED: Warfarin TAB(*) 2 MG PO ONE (17:00)
--- NOTE | 2018-06-24 17:06 | PN ---
Subjective Date of Service: 06/24/18 Interval History: report by nursing staff that patient was constipated and now shaking after BM. Call to bedside to examine the patient, Dr. Melendrez in room . Patient found lying in bed, with upper extremities shaking. Nursing staff reports that the patient had got up used the bathroom , had a large hard BM after receiving an enema. Patient currently denies any pain, chest pain , shortness of breath. denies any abd pain n/.v/d. no reports of fevers. xanax ordered. Patient reevaluated at the bedside 20 minutes later, patient is resting calmly in bed, shaking has subsided. no complaints chest pain or shortness of breath. Xanax held as symptoms had resolved Called by nursing reports that patient is now hypoxic on room air with a sat 89 % and is tachycardic with a heart rate of 117 - will order VQ scan Family History: Unchanged from Admission Social History: Unchanged from Admission Past Medical History: Unchanged from Admission Objective Active Medications: Acetaminophen (Tylenol Tab*) 975 mg PO Q8H [facility] Last Admin: 06/24/18 14:24 Dose: 975 mg Amlodipine Besylate (Norvasc Tab*) 5 mg PO DAILY [facility] Last Admin: 06/24/18 08:00 Dose: 5 mg Bisacodyl (Dulcolax Supp*) 10 mg [place] DAILY PRN PRN Reason: constipation Last Admin: 06/24/18 08:53 Dose: 10 mg Cyclobenzaprine HCl (Flexeril Tab*) 10 mg PO TID PRN PRN Reason: SPASMS Last Admin: 06/22/18 16:15 Dose: 10 mg Dextrose (D50w Syringe 50 Ml*) 12.5 gm IV PUSH .FOR FS < 60 - SS PRN PRN Reason: FS < 60 Diphenhydramine HCl (Benadryl Po*) 25 mg PO Q6H PRN PRN Reason: INSOMNIA Docusate Sodium (Colace Cap*) 100 mg PO BID [facility] Last Admin: 06/24/18 08:01 Dose: 100 mg Enoxaparin Sodium (Lovenox(*)) 30 mg SUBCUT Q24H [facility] Last Admin: 06/24/18 11:32 Dose: 30 mg Gabapentin (Neurontin Cap(*)) 300 mg PO TID [facility] Last Admin: 06/24/18 14:23 Dose: 300 mg Hydralazine HCl (Apresoline Iv*) 5 mg IV SLOW PU Q6H PRN PRN Reason: BLOOD PRESSURE Last Admin: 06/21/18 13:54 Dose: 5 mg Insulin Human Lispro (Humalog*) 0 units SUBCUT [facility]; Protocol Last Admin: 06/24/18 12:09 Dose: Not Given Lactulose (Lactulose*) 30 ml PO Q6H PRN PRN Reason: constipation Last Admin: 06/24/18 07:16 Dose: 30 ml Magnesium Hydroxide (Milk Of Magnesia Liq*) 30 ml PO BID [facility] Last Admin: 06/24/18 07:54 Dose: Not Given Magnesium Hydroxide (Milk Of Magnesia Liq*) 30 ml PO Q6H PRN PRN Reason: constipation Morphine Sulfate (Morphine Vial*) 2 mg IV Q2H PRN PRN Reason: PAIN - SEVERE Last Admin: 06/23/18 02:45 Dose: 2 mg Morphine Sulfate (Ms Contin(*)) 30 mg PO Q12H [facility] Last Admin: 06/24/18 16:42 Dose: 30 mg Omeprazole (Prilosec Cap*) 20 mg PO 0600 [facility] Last Admin: 06/24/18 05:03 Dose: 20 mg Ondansetron HCl (Zofran Inj*) 4 mg IV Q6H PRN PRN Reason: nausea Oxycodone HCl (Roxycodone Tab*) 10 mg PO Q4H PRN PRN Reason: moderate to severe pain Last Admin: 06/23/18 05:16 Dose: 10 mg Oxycodone/Acetaminophen (Percocet 5/325 Tab*) 1 tab PO Q3H PRN PRN Reason: PAIN - MODERATE Oxycodone/Acetaminophen (Percocet 5/325 Tab*) 2 tab PO Q3H PRN PRN Reason: PAIN - MODERATE Last Admin: 06/23/18 12:54 Dose: 2 tab Pharmacy Profile Note (Coumadin Daily Reminder*) 1 note FOLLOW UP 1700 [facility] Last Admin: 06/24/18 16:46 Dose: 1 note Phenazopyridine HCl (Pyridium Tab*) 100 mg PO TID [facility] Last Admin: 06/24/18 14:24 Dose: 100 mg Polyethylene Glycol/Electrolytes (Miralax*) 17 gm PO DAILY PRN PRN Reason: Constipation Sodium Biphosphate/Sodium Phosphate (Fleet Enema*) 1 bottle [place] DAILY PRN PRN Reason: CONSTIPATION Last Admin: 06/24/18 10:46 Dose: 1 bottle Sucralfate (Carafate*) 1 gm PO AC JACQUELIN Last Admin: 06/24/18 16:42 Dose: 1 gm Tramadol HCl (Ultram*) 50 mg PO Q6H PRN PRN Reason: PAIN Last Admin: 06/24/18 11:31 Dose: 50 mg Warfarin Sodium (Coumadin Tab(*)) 2 mg PO ONCE ONE; Protocol Stop: 06/24/18 17:01 Last Admin: 06/24/18 16:42 Dose: 2 mg Vital Signs - 8 hr 06/24/18 06/24/18 06/24/18 10:50 11:31 11:37 Temperature 97.9 F Pulse Rate 101 Respiratory 20 18 Rate Blood Pressure 138/95 (mmHg) O2 Sat by Pulse 92 Oximetry 06/24/18 06/24/18 06/24/18 11:55 12:00 12:03 Temperature 99.4 F Pulse Rate 130 125 Respiratory 30 Rate Blood Pressure 222/110 149/107 218/106 (mmHg) O2 Sat by Pulse 98 Oximetry 06/24/18 06/24/18 06/24/18 12:24 12:52 14:23 Temperature 99.6 F Pulse Rate 104 117 Respiratory 20 18 Rate Blood Pressure 159/72 120/67 (mmHg) O2 Sat by Pulse 89 Oximetry 06/24/18 06/24/18 06/24/18 14:24 14:27 16:00 Temperature 99.6 F Pulse Rate 102 Respiratory 18 Rate Blood Pressure 130/69 (mmHg) O2 Sat by Pulse 93 93 Oximetry 06/24/18 06/24/18 16:42 16:44 Temperature Pulse Rate Respiratory 18 18 Rate Blood Pressure (mmHg) O2 Sat by Pulse Oximetry Oxygen Devices in Use Now: Nasal Cannula Appearance: appears calm, oriented x 2, confused to time Eyes: No Scleral Icterus Ears/Nose/Mouth/Throat: Clear Oropharnyx, Mucous Membranes Moist Neck: NL Appearance and Movements; NL JVP, Trachea Midline Respiratory: Symmetrical Chest Expansion and Respiratory Effort, Clear to Auscultation Cardiovascular: NL Sounds; No Murmurs; No JVD, No Edema Abdominal: NL Sounds; No Tenderness; No Distention Extremities: No Edema, No Clubbing, Cyanosis Skin: No Rash or Ulcers Neurological: Alert and Oriented x 3 Nutrition: Taking PO's Result Diagrams: 06/25/18 05:33 06/24/18 13:15 Assess/Plan/Problems-Billing Assessment: Mr. Perez is a 77 yo male with PMH significant for DM, neuropathy, migraines , GERD, carotid aneurysm and arthritis who presented to the hospital for a elective left total knee arthroplasty. - Patient Problems (1) Status post total left knee replacement Current Visit: Yes Status: Acute Code(s): Z96.652 - PRESENCE OF LEFT ARTIFICIAL KNEE JOINT SNOMED Code(s): 5894719815910 Comment: - POD #3 - Management per Orthopedics - Continue pain management and bowel regimen - SNF at discharge. (2) HTN (hypertension) Current Visit: Yes Status: Acute Code(s): I10 - ESSENTIAL (PRIMARY) HYPERTENSION SNOMED Code(s): 05249088 Comment: - BPs are improving and now normotensive - continue antihypertensives (3) Diabetes Current Visit: Yes Status: Chronic Code(s): E11.9 - TYPE 2 DIABETES MELLITUS WITHOUT COMPLICATIONS SNOMED Code(s): 15512884 Comment: - Glucose well controlled - Hold metformin - Continue Lispro SS - Resume metformin at discharge. (4) GERD (gastroesophageal reflux disease) Current Visit: Yes Status: Chronic Code(s): K21.9 - GASTRO-ESOPHAGEAL REFLUX DISEASE WITHOUT ESOPHAGITIS SNOMED Code(s): 424211281 Comment: - Continue carafate and prilosec (5) DVT prophylaxis Current Visit: Yes Status: Acute Code(s): NIA1221 - SNOMED Code(s): 599332224 Comment: - Lovenox bridge to warfarin per Ortho (6) Full code status Current Visit: Yes Status: Acute Code(s): Z78.9 - OTHER SPECIFIED HEALTH STATUS SNOMED Code(s): 580497187 Status and Disposition: Inpatient. Discharge per Orthopedic surgery. Thank you for this consultation, we will continue to follow.
[2018-06-25] MEDS: Morphine TAB Extended Release (*) 30 MG TAB.ER PO SCH (05:20)
[2018-06-25] MEDS: Omeprazole CAP (NF) 20 MG CAP.DR PO SCH (05:20)
[2018-06-25 06:09] LABS: Hematocrit 35 % (42-52); Hemoglobin 11.6 g/dl (14.0-18.0); Mean Platelet Volume 7.7 fL (7.4-10.4); Platelet Count 289 10^3/ul (150-450)
[2018-06-25 06:27] LABS: INR 2.4 (0.77-1.02)
[2018-06-25] MEDS: Insulin LISPRO* 1 UNITS UNIT SUBCUT SCH (07:53)
[2018-06-25] MEDS: Gabapentin CAP(*) 300 MG PO SCH (08:05)
[2018-06-25] MEDS: Sucralfate TAB* 1 GM PO SCH (08:05)
[2018-06-25] MEDS: Phenazopyridine TAB* 100 MG PO SCH (08:05)
[2018-06-25] MEDS: Docusate CAP* 100 MG PO SCH (08:06)
[2018-06-25] MEDS: Acetaminophen TAB* 325 MG PO SCH (08:06)
[2018-06-25] MEDS: amLODIPine TAB* 5 MG PO SCH (08:06)
[2018-06-25 08:29] VITALS: BP 125/64
[2018-06-25] MEDS: Magnesium Hydroxide LIQ* 30 ML UDC PO SCH (08:29)
--- NOTE | 2018-06-25 10:43 | PN ---
Progress Note - Progress Note Date of Service: 06/25/18 SOAP: Subjective: []Patient seen at bedside, no complaints of SOB, CP, nausea today. Feels good. Bed available at [facility] today. Objective: [] Vital Signs Temp 98.1 F 06/25/18 07:54 Pulse 70 06/25/18 07:54 Resp 18 06/25/18 08:10 BP 125/64 06/25/18 07:54 Pulse Ox 99 06/25/18 07:54 Intake & Output 06/24/18 06/25/18 06/25/18 18:59 06:59 18:59 Intake Total 0 1050 600 Output Total 350 625 Balance -350 425 600 Intake: Oral 0 1050 600 Output: Urine 350 625 Other: Estimated Void Small Large # Bowel Movements 1 0 Estimated Stool Amount Medium # Voids 2 1 Laboratory Results - last 24 hr 06/24/18 06/24/18 06/24/18 11:39 13:15 16:42 Hgb Hct Plt Count MPV INR (Anticoag Therapy) Sodium 135 Potassium 4.1 Chloride 103 Carbon Dioxide 27 Anion Gap 5 BUN 15 Creatinine 0.79 Est GFR ( Amer) 115.4 Est GFR (Non-Af Amer) 95.4 BUN/Creatinine Ratio 19.0 Glucose 180 H POC Glucose (mg/dL) 139 H 179 H Calcium 8.9 Magnesium 2.2 06/25/18 06/25/18 06/25/18 05:33 05:33 07:42 Hgb 11.6 L Hct 35 L Plt Count 289 MPV 7.7 INR (Anticoag Therapy) 2.40 H Sodium Potassium Chloride Carbon Dioxide Anion Gap BUN Creatinine Est GFR ( Amer) Est GFR (Non-Af Amer) BUN/Creatinine Ratio Glucose POC Glucose (mg/dL) 120 H Calcium Magnesium Wound benign left knee calf NT and soft +DF/PF left ankle sensation remains intact Assessment: []s/p LTK POD #4 Plan: []VQ scan negative Doing well Stable for discharge to SNF Follow up in 10-14 days as scheduled with Dr. Hall
== END 2018-06-25 11:20 | DRG 470 ==
LOC: AA 06:41 → SSU 15:13
PROVIDERS: ADMIT Orthopaedic Surgery Adult Reconstructive Orthopaedic Surgery; ATTEND Internal Medicine
PROC: 0SRD0J9 Replacement of Left Knee Joint with Synthetic Substitute, Cemented, Open Approach (ICD-10-PCS; principal; 2018-06-21 09:00)
DX: M17.12 Unilateral primary osteoarthritis, left knee (principal); M25.462 Effusion, left knee; G43.909 Migraine, unspecified, not intractable, without status migrainosus; F41.9 Anxiety disorder, unspecified; I10 Essential (primary) hypertension; M25.762 Osteophyte, left knee; K21.9 Gastro-esophageal reflux disease without esophagitis; M24.562 Contracture, left knee; E11.40 Type 2 diabetes mellitus with diabetic neuropathy, unspecified; Z83.79 Family history of other diseases of the digestive system; Z91.030 Bee allergy status; Z91.041 Radiographic dye allergy status; Z91.013 Allergy to seafood; Z87.891 Personal history of nicotine dependence; Z72.89 Other problems related to lifestyle; R00.0 Tachycardia, unspecified; R09.02 Hypoxemia; K59.00 Constipation, unspecified; Z79.84 Long term (current) use of oral hypoglycemic drugs; Z79.01 Long term (current) use of anticoagulants
CPT/HCPCS: 36415; 71046; 78582; 80048; 83735; 85014; 85018; 85049; 85610; 88305; 88311; A9270-GY; A9540; A9558; C1776; G8978-GP-CJ; G8979-GP-CI; G8987-GO-CJ; G8988-GO-CI; J0360; J0690; J1100; J1170; J1650; J2250; J2270; J2405; J2704; J2795; J3010

== ENCOUNTER 2020-01-23 17:27 | Observation (INO) ==
[2020-01-23] MEDS ORDERED: Dexamethasone IV 10 MG in NS 0.9% 50 ML 50 ML IVPB ONE (18:35)
[2020-01-23 19:00] LABS: ABS Basophils 0.1 10^3/ul (0-0.2); ABS Eosinophils 0.1 10^3/ul (0-0.6); ABS Lymphocytes 1.3 10^3/ul (1.0-4.8); ABS Monocytes 0.9 10^3/ul (0-0.8); Eosinophil % 0.6 %; Hematocrit 36 % (42-52); Hemoglobin 12.3 g/dL (14.0-18.0); Lymphocyte % 15.2 %; Mean Corpuscular HGB Conc 34 g/dL (31-36); Mean Corpuscular Hemoglobin 28 pg (27-31); Mean Corpuscular Volume 83 fL (80-94); Mean Platelet Volume 7.5 fL (7.4-10.4); Platelet Count 254 10^3/uL (150-450); Red Blood Count 4.36 10^6 /uL (4.18-5.48); Red Cell Distribution Width 14 % (10-15); White Blood Count 8.3 10^3/uL (3.5-10.8)
[2020-01-23 19:17] LABS: Albumin 3.9 g/dL (3.2-5.2); Albumin/Globulin Ratio 1.5 (1-3); BUN/Creatinine Ratio 20.3 (8-20); Calcium 9.3 mg/dL (8.6-10.3); EGFR African American 114.8 (>60); EGFR Non-African American 94.9 (>60); Globulin 2.6 g/dL (2-4); Potassium 4.5 mmol/L (3.5-5.0); Total Bilirubin 0.5 mg/dL (0.2-1.0); Total Protein 6.5 g/dL (6.4-8.9)
[2020-01-23] MEDS ORDERED: Morphine 4 MG/ML VIAL (1 ml) IV ONE (19:26)
[2020-01-23] MEDS ORDERED: Enoxaparin 40 MG/0.4 ML SYR(*) SUBCUT SCH (21:00)
[2020-01-23] MEDS: Lactated Ringers 1000 ml BAG 1,000 ML IV SCH (22:48)
[2020-01-23] MEDS: Pantoprazole VIAL 40 MG VIAL IV SCH (22:48)
[2020-01-24] MEDS ORDERED: Dexamethasone IV 10 MG in NS 0.9% 50 ML 50 ML IVPB SCH (02:00)
[2020-01-24] MEDS: Acetaminophen IV 1 GM/100ML 100 ML IVPB PRN ×2 (03:28→20:27)
[2020-01-24] MEDS: Dexamethasone IV 10 MG in NS 0.9% 50 ML 50 ML IVPB SCH ×2 (03:47→12:11)
[2020-01-24] MEDS: Heparin 5000 UNITS/ML VIAL(*) 1 ml vial SUBCUT SCH ×3 (05:00→21:53)
[2020-01-24] MEDS: Lactated Ringers 1000 ml BAG 1,000 ML IV SCH ×3 (05:35→21:52)
[2020-01-24 06:40] LABS: Albumin 3.8 g/dL (3.2-5.2); Albumin/Globulin Ratio 1.4 (1-3); BUN/Creatinine Ratio 23.9 (8-20); Calcium 9.2 mg/dL (8.6-10.3); EGFR African American 129.8 (>60); EGFR Non-African American 107.3 (>60); Globulin 2.7 g/dL (2-4); Magnesium 1.9 mg/dL (1.9-2.7); Potassium 4.2 mmol/L (3.5-5.0); Total Bilirubin 0.6 mg/dL (0.2-1.0); Total Protein 6.5 g/dL (6.4-8.9)
[2020-01-24] MEDS ORDERED: Dextrose 50% Syringe 50 ml 25 GM/50 ML SYRINGE IV PUSH PRN (18:26)
[2020-01-24] MEDS ORDERED: Insulin LISPRO 100 units/ml(*) SUBCUT SCH (21:00)
[2020-01-24] MEDS: Pantoprazole VIAL 40 MG VIAL IV SCH (21:40)
[2020-01-25] MEDS: Dexamethasone IV 4 MG/ML VIAL 1 ml VIAL IV SLOW PU SCH ×2 (00:09→12:10)
[2020-01-25] MEDS: Lactated Ringers 1000 ml BAG 1,000 ML IV SCH (04:31)
[2020-01-25] MEDS: Heparin 5000 UNITS/ML VIAL(*) 1 ml vial SUBCUT SCH ×2 (05:31→13:51)
[2020-01-25 08:01] LABS: Albumin 3.6 g/dL (3.2-5.2); Albumin/Globulin Ratio 1.4 (1-3); BUN/Creatinine Ratio 32.2 (8-20); Calcium 9.1 mg/dL (8.6-10.3); EGFR African American 160.8 (>60); EGFR Non-African American 132.9 (>60); Globulin 2.6 g/dL (2-4); Total Bilirubin 0.4 mg/dL (0.2-1.0); Total Protein 6.2 g/dL (6.4-8.9)
[2020-01-25] MEDS: Insulin LISPRO 100 units/ml(*) SUBCUT SCH ×2 (08:45→12:24)
[2020-01-25] MEDS ORDERED: HYDROcodone/ACETAMIN 5/325 mg TAB PO PRN ×2 (12:07)
[2020-01-25 15:37] VITALS: BP 140/66
== END 2020-01-25 16:25 | disposition home or self-care (01) ==
LOC: ED 17:27 → SSU 17:27
PROVIDERS: ADMIT Pediatrics; ATTEND Internal Medicine